=== PATIENT | male | born 1965 ===

== ENCOUNTER 2018-12-07 18:54 | Emergency (ER) | payer OTHER ==
--- NOTE | 2018-12-07 19:12 | Event Note ---
ED Screening Note Date of service: 12/07/18 Time: 19:11 ED Screening Note: 53 y o male presents to Ed ccof rectal pain with fever denies blood in stool This initial assessment/diagnostic orders/clinical plan/treatment(s) is/are subject to change based on patients health status, clinical progression and re- assessment by fellow clinical providers in the ED. Further treatment and workup at subsequent clinical providers discretion. Patient/guardian urged not to elope from the ED as their condition may be serious if not clinically assessed and managed. Initial orders include:
[2018-12-08] MEDS ORDERED: LIDOCAINE VISCOUS 2% PO ONE (02:19)
--- NOTE | 2018-12-08 02:51 | XRay Report ---
ABDOMEN 3 VIEW(S) INDICATION / CLINICAL INFORMATION: abd pain constipation. COMPARISON: None available. FINDINGS: TUBES / LINES: None. BOWEL GAS PATTERN: Large amount of solid stool throughout colon characteristic for constipation. No b owel obstruction. FREE AIR / EXTRALUMINAL GAS: None seen. ADDITIONAL FINDINGS: No significant additional findings. IMPRESSION: 1. Marked constipation. Signer Name: Buzz Garcia MD Signed: 12/08/2018 2:47 AM Workstation Name: [employer]
[2018-12-08] MEDS ORDERED: NACL 0.9% 1000 ML 1,000 ML IV ONE (02:53)
--- NOTE | 2018-12-08 02:54 | Emergency Department Report ---
<ERIC HITCHCOCK - Last Filed: 12/08/18 03:38> ED General Adult HPI - General Chief complaint: Rectal Pain Stated complaint: CHILLS/RECTAL PAIN Time Seen by Provider: 12/07/18 19:10 Source: patient Mode of arrival: Ambulatory Limitations: No Limitations - History of Present Illness Initial comments: 53 y o male presents to Ed cc of rectal pain burning itching with fever tmax 100.4 there is no n/v no denies blood in stool last stool hard firm "rabbit pellets" abd firm, hx of hemorrhoids, GERD , HTN, DMII, pt denies other symptoms is tolerating po intake at this time. Onset/Timin -: week(s), unknown (recurring problem) Severity scale (0 -10): 5 Quality: burning, other (itching ) Consistency: intermittent Improves with: rest Worsens with: other (bowel movement ) Associated Symptoms: denies: chest pain, cough, diaphoresis, fever/chills, headaches, loss of appetite, nausea/vomiting - Related Data Previous Rx's Medication Instructions Recorded Last Taken Type Docusate Sodium [Colace CAP] 100 mg PO BID #60 capsule 12/08/18 Unknown Rx Polyethylene Glycol 3350 [Miralax 17 gm PO BID 7 Days #14 packet 12/08/18 Unknown Rx 3350] Allergies Allergy/AdvReac Type Severity Reaction Status Date / Time No Known Allergies Allergy Verified 12/07/18 18:56 ED Review of Systems Constitutional: denies: chills, fever Eyes: denies: eye pain, eye discharge, vision change ENT: denies: ear pain, throat pain Respiratory: denies: cough, shortness of breath, wheezing Cardiovascular: denies: chest pain, palpitations Endocrine: no symptoms reported Gastrointestinal: abdominal pain, constipation. denies: nausea, vomiting Genitourinary: denies: urgency, dysuria Musculoskeletal: denies: back pain, joint swelling, arthralgia Skin: denies: rash, lesions Neurological: denies: headache, weakness, paresthesias Psychiatric: denies: anxiety, depression Hematological/Lymphatic: denies: easy bleeding, easy bruising ED Past Medical Hx - Past Medical History Previous Medical History?: No - Surgical History Past Surgical History?: No - Social History Smoking Status: Current Every Day Smoker Substance Use Type: None - Medications Home Medications: Home Medications Medication Instructions Recorded Confirmed Last Taken Type Docusate Sodium [Colace CAP] 100 mg PO BID #60 capsule 12/08/18 Unknown Rx Polyethylene Glycol 3350 [Miralax 17 gm PO BID 7 Days #14 packet 12/08/18 Unknown Rx 3350] ED Physical Exam - General Limitations: No Limitations General appearance: alert, in no apparent distress - Head Head exam: Present: atraumatic, normocephalic - Eye Eye exam: Present: normal appearance, PERRL, EOMI Pupils: Present: normal accommodation - ENT ENT exam: Present: normal orophraynx, mucous membranes moist - Neck Neck exam: Present: normal inspection, full ROM. Absent: tenderness - Respiratory Respiratory exam: Present: normal lung sounds bilaterally. Absent: respiratory distress, wheezes, stridor, chest wall tenderness - Cardiovascular Cardiovascular Exam: Present: regular rate, normal rhythm, normal heart sounds. Absent: systolic murmur, diastolic murmur, rubs, gallop - GI/Abdominal GI/Abdominal exam: Present: distended, normal bowel sounds. Absent: tenderness, guarding, rebound, rigid, bruit, hernia - Rectal Rectal exam: Present: normal rectal tone (nonthrombosed ), hemorrhoids. Absent: black stool, bloody stool - exam: Present: normal inspection. Absent: scrotal swelling External exam: Absent: swelling - Extremities Exam Extremities exam: Present: normal inspection, full ROM, normal capillary refill. Absent: tenderness, pedal edema, joint swelling, calf tenderness - Back Exam Back exam: Present: normal inspection, full ROM. Absent: tenderness, CVA tend erness (R), CVA tenderness (L), muscle spasm, rash noted - Neurological Exam Neurological exam: Present: alert, oriented X3, CN II-XII intact, normal gait, motor sensory deficit - Psychiatric Psychiatric exam: Present: normal affect, normal mood - Skin Skin exam: Present: warm, dry, intact, normal color. Absent: rash ED Medical Decision Making - Radiology Data Radiology results: report reviewed, image reviewed Ordering Physician: ERIC HITCHCOCK NP Date of Service: 12/08/18 Procedure(s): XR abdomen 1V ap Accession Number(s): [id number] cc: ERIC HITCHCOCK NP Fluoro Time In Minutes: ABDOMEN 3 VIEW(S) INDICATION / CLINICAL INFORMATION: abd pain constipation. COMPARISON: None available. FINDINGS: TUBES / LINES: None. BOWEL GAS PATTERN: Large amount of solid stool throughout colon characteristic for constipation. No bowel obstruction. FREE AIR / EXTRALUMINAL GAS: None seen. ADDITIONAL FINDINGS: No significant additional findings. IMPRESSION: 1. Marked constipation. Signer Name: Buzz Garcia MD Signed: 12/08/2018 2:47 AM Workstation Name: [id number] Transcribed By: TL Dictated By: Buzz Garcia MD Electronically Authenticated By: Buzz Garcia MD Signed Date/Time: 12/08/18246 DD/ 5 TD/TT: - Medical Decision Making KUB consistent with discuss hydration bulk laxatives hemorrhoids pain is impr jaswinder to 05/16 plan MiraLAX Colace hydrate with him 1 by mouth daily for the next 5 days patient will obtain [id number] Preparation H follow with PCP in 2-3 days return to ED status symptoms worsen or return patient verbalized agreement and understanding of discharge plan DC to home in stable condition at this time ED Disposition Disposition: DC-01 TO HOME OR SELFCARE Is pt being admited?: No Does the pt Need Aspirin: No Condition: Stable Instructions: Constipation (ED), High Fiber Diet (ED) Prescriptions: Docusate Sodium [Colace CAP] 100 mg PO BID #60 capsule Polyethylene Glycol 3350 [Miralax 3350] 17 gm PO BID 7 Days #14 packet Referrals: [facility] [Outside] - 3-5 Days Forms: Work/School Release Form(ED) Time of Disposition: 03:46 <LETA CHEEMA - Last Filed: 12/08/18 05:55> ED Review of Systems ROS: Stated complaint: CHILLS/RECTAL PAIN Other details as noted in HPI ED Course Vital Signs 12/07/18 12/08/18 19:10 04:12 Temperature 100.5 F H 99.0 F Pulse Rate 116 H 89 Respiratory 22 18 Rate Blood Pressure 127/73 Blood Pressure 140/76 [Left] O2 Sat by Pulse 98 99 Oximetry - Reevaluation(s) Reevaluation #1: 12/08/18 05:54 Chart is reviewed, vital signs are reviewed. I was available for consultation, however, this case was not discussed with myself. I have requested that nursing team contact the patient, and have him return to the emergency room for repeat evaluation, given initial tachycardia and low-grade fever, would recommend CT scan of the abdomen and pelvis. Critical care attestation.: If time is entered above; I have spent that time in minutes in the direct care of this critically ill patient, excluding procedure time.
[2018-12-08] MEDS ORDERED: IBUPROFEN PO ONE (02:55)
[2018-12-08 04:12] VITALS: BP 140/76
[2018-12-09] MEDS ORDERED: HumuLIN R ONE (00:50)
[2018-12-09] MEDS ORDERED: LACTATED RINGERS 1,000 ML ONE (19:57)
== END 2018-12-08 04:12 | disposition home or self-care (01) ==
LOC: ED 18:54
DX: K62.89 Other specified diseases of anus and rectum (principal); R50.9 Fever, unspecified; F17.200 Nicotine dependence, unspecified, uncomplicated; Z79.899 Other long term (current) drug therapy
CPT/HCPCS: 74018; 99283; J7030; J1815; J7120

== ENCOUNTER 2018-12-08 16:37 | Inpatient (IN) | payer OTHER ==
--- NOTE | 2018-12-08 18:36 | Emergency Department Report ---
ED General Adult HPI - General Chief complaint: Abdominal Pain Stated complaint: RECHECK FOR HEART RATE Time Seen by Provider: 12/08/18 17:07 Source: patient Mode of arrival: Ambulatory Limitations: No Limitations - History of Present Illness Initial comments: The patient presents to the emergency department with a chief complaint of abdominal and rectal pain. She was seen here yesterday and diagnosed with hemorrhoids and constipation. Patient received a phone call at home today after his chart was reviewed. There was concern that the patient was discharged home with a fever, abdominal pain, and tachycardic. -: week(s) Location: abdomen Radiation: non-radiation Severity scale (0 -10): 3 Quality: stabbing Consistency: constant Improves with: none Worsens with: none Associated Symptoms: denies other symptoms Treatments Prior to Arrival: none - Related Data Previous Rx's Medication Instructions Recorded Last Taken Type Docusate Sodium [Colace CAP] 100 mg PO BID #60 capsule 12/08/18 Unknown Rx Polyethylene Glycol 3350 [Miralax 17 gm PO BID 7 Days #14 packet 12/08/18 Unknown Rx 3350] Allergies Allergy/AdvReac Type Severity Reaction Status Date / Time No Known Allergies Allergy Verified 12/07/18 18:56 ED Review of Systems ROS: Stated complaint: RECHECK FOR HEART RATE Other details as noted in HPI Constitutional: denies: chills, fever Eyes: denies: eye pain, eye discharge, vision change ENT: denies: ear pain, throat pain Respiratory: denies: cough, shortness of breath, wheezing Cardiovascular: denies: chest pain, palpitations Endocrine: no symptoms reported Gastrointestinal: abdominal pain. denies: nausea, diarrhea Genitourinary: denies: urgency, dysuria Musculoskeletal: denies: back pain, joint swelling, arthralgia Skin: denies: rash, lesions Neurological: denies: headache, weakness, paresthesias Psychiatric: denies: anxiety, depression Hematological/Lymphatic: denies: easy bleeding, easy bruising ED Past Medical Hx - Past Medical History Previous Medical History?: No - Surgical History Past Surgical History?: No - Social History Smoking Status: Unknown if ever smoked Substance Use Type: None - Medications Home Medications: Home Medications Medication Instructions Recorded Confirmed Last Taken Type Docusate Sodium [Colace CAP] 100 mg PO BID #60 capsule 12/08/18 Unknown Rx Polyethylene Glycol 3350 [Miralax 17 gm PO BID 7 Days #14 packet 12/08/18 Unknown Rx 3350] ED Physical Exam - General Limitations: No Limitations General appearance: alert, in no apparent distress - Head Head exam: Present: atraumatic, normocephalic - Eye Eye exam: Present: normal appearance, PERRL, EOMI - ENT ENT exam: Present: mucous membranes moist - Neck Neck exam: Present: normal inspection - Respiratory Respiratory exam: Present: normal lung sounds bilaterally. Absent: respiratory distress - Cardiovascular Cardiovascular Exam: Present: normal rhythm, tachycardia. Absent: systolic murmur, diastolic murmur, rubs, gallop - GI/Abdominal GI/Abdominal exam: Present: soft, tenderness (diffusely ttp), normal bowel sounds. Absent: distended - Rectal Rectal exam: Present: deferred - Extremities Exam Extremities exam: Present: normal inspection - Back Exam Back exam: Present: normal inspection - Neurological Exam Neurological exam: Present: alert, oriented X3 - Psychiatric Psychiatric exam: Present: normal affect, normal mood - Skin Skin exam: Present: warm, dry, intact, normal color. Absent: rash ED Course Vital Signs 12/08/18 16:59 Temperature 100.0 F H Pulse Rate 107 H Respiratory 18 Rate Blood Pressure 141/81 O2 Sat by Pulse 100 Oximetry ED Medical Decision Making - Lab Data Result diagrams: 12/08/18 18:29 12/08/18 18:29 Lab Results 12/08/18 12/08/18 12/08/18 Range/Units 18:29 18:29 18:56 WBC 12.2 H (4.5-11.0) K/mm3 RBC 4.66 (3.65-5.03) M/mm3 Hgb 13.6 (11.8-15.2) gm/dl Hct 40.4 (35.5-45.6) % MCV 87 (84-94) fl MCH 29 (28-32) pg MCHC 34 (32-34) % RDW 13.6 (13.2-15.2) % Plt Count 311 (140-440) K/mm3 Lymph % (Auto) 12.0 L (13.4-35.0) % Teller % (Auto) 6.3 (0.0-7.3) % Eos % (Auto) 2.3 (0.0-4.3) % Baso % (Auto) 1.2 (0.0-1.8) % Lymph # 1.5 (1.2-5.4) K/mm3 Teller # 0.8 (0.0-0.8) K/mm3 Eos # 0.3 (0.0-0.4) K/mm3 Baso # 0.1 (0.0-0.1) K/mm3 Seg Neutrophils % 78.2 H (40.0-70.0) % Seg Neutrophils # 9.5 H (1.8-7.7) K/mm3 Sodium 130 L (137-145) mmol/L Potassium 4.8 (3.6-5.0) mmol/L Chloride 92.4 L (98-107) mmol/L Carbon Dioxide 25 (22-30) mmol/L Anion Gap 17 mmol/L BUN 11 (9-20) mg/dL Creatinine 0.6 L (0.8-1.5) mg/dL Estimated GFR > 60 ml/min BUN/Creatinine Ratio 18 % Glucose 411 H (75-100) mg/dL Lactic Acid 1.20 (0.7-2.0) mmol/L Calcium 9.6 (8.4-10.2) mg/dL Total Bilirubin 0.30 (0.1-1.2) mg/dL AST 13 (5-40) units/L ALT 13 (7-56) units/L Alkaline Phosphatase 113 (35-129) units/L Total Protein 7.8 (6.3-8.2) g/dL Albumin 3.5 L (3.9-5) g/dL Albumin/Globulin Ratio 0.8 % Lipase 20 (13-60) units/L Urine Color (Yellow) Urine Turbidity (Clear) Urine pH (5.0-7.0) Ur Specific [place] (1.003-1.030) Urine Protein (Negative) mg/dL Urine Glucose (UA) (Negative) mg/dL Urine Ketones (Negative) mg/dL Urine Blood (Negative) Urine Nitrite (Negative) Urine Bilirubin (Negative) Urine Urobilinogen (<2.0) mg/dL Ur Leukocyte Esterase (Negative) Urine WBC (Auto) (0.0-6.0) /HPF Urine RBC (Auto) (0.0-6.0) /HPF U Epithel Cells (Auto) (0-13.0) /HPF Urine Bacteria (Auto) (Negative) /HPF Urine Mucus /HPF Urine Yeast (Budding) /HPF 12/08/18 Range/Units 19:53 WBC (4.5-11.0) K/mm3 RBC (3.65-5.03) M/mm3 Hgb (11.8-15.2) gm/dl Hct (35.5-45.6) % MCV (84-94) fl MCH (28-32) pg MCHC (32-34) % RDW (13.2-15.2) % Plt Count (140-440) K/mm3 Lymph % (Auto) (13.4-35.0) % Teller % (Auto) (0.0-7.3) % Eos % (Auto) (0.0-4.3) % Baso % (Auto) (0.0-1.8) % Lymph # (1.2-5.4) K/mm3 Teller # (0.0-0.8) K/mm3 Eos # (0.0-0.4) K/mm3 Baso # (0.0-0.1) K/mm3 Seg Neutrophils % (40.0-70.0) % Seg Neutrophils # (1.8-7.7) K/mm3 Sodium (137-145) mmol/L Potassium (3.6-5.0) mmol/L Chloride (98-107) mmol/L Carbon Dioxide (22-30) mmol/L Anion Gap mmol/L BUN (9-20) mg/dL Creatinine (0.8-1.5) mg/dL Estimated GFR ml/min BUN/Creatinine Ratio % Glucose (75-100) mg/dL Lactic Acid (0.7-2.0) mmol/L Calcium (8.4-10.2) mg/dL Total Bilirubin (0.1-1.2) mg/dL AST (5-40) units/L ALT (7-56) units/L Alkaline Phosphatase (35-129) units/L Total Protein (6.3-8.2) g/dL Albumin (3.9-5) g/dL Albumin/Globulin Ratio % Lipase (13-60) units/L Urine Color Yellow (Yellow) Urine Turbidity Cloudy (Clear) Urine pH 7.0 (5.0-7.0) Ur Specific [place] 1.028 (1.003-1.030) Urine Protein <15 mg/dl (Negative) mg/dL Urine Glucose (UA) >=500 (Negative) mg/dL Urine Ketones Neg (Negative) mg/dL Urine Blood Sm (Negative) Urine Nitrite Pos (Negative) Urine Bilirubin Neg (Negative) Urine Urobilinogen 4.0 (<2.0) mg/dL Ur Leukocyte Esterase Lg (Negative) Urine WBC (Auto) > 182.0 H (0.0-6.0) /HPF Urine RBC (Auto) 9.0 (0.0-6.0) /HPF U Epithel Cells (Auto) 1.0 (0-13.0) /HPF Urine Bacteria (Auto) 1+ (Negative) /HPF Urine Mucus Few /HPF Urine Yeast (Budding) 1+ /HPF - Radiology Data Radiology results: report reviewed - Medical Decision Making Spoke with Dr. Soliz and will see patient on consult Discussed results with patient Critical Care Time: Yes Critical care time in (mins) excluding proc time.: 35 Critical care attestation.: If time is entered above; I have spent that time in minutes in the direct care of this critically ill patient, excluding procedure time. ED Disposition Clinical Impression: Prostate abscess, Sepsis Disposition: DC-09 OP ADMIT IP TO THIS HOSP Is pt being admited?: Yes Does the pt Need Aspirin: No Condition: Fair Referrals: PRIMARY CARE, [Primary Care Provider] - 3-5 Days
[2018-12-08] MEDS ORDERED: NACL 0.9% 1000 ML 1,000 ML IV ONE (18:37)
[2018-12-08] MEDS ORDERED: MAXIPIME/NS 1 GM/100 ML 1 GM/100 ML BAG IV ONE (18:38)
[2018-12-08 19:00] LABS: Basophils # (Auto) 0.1 K/mm3 (0.0-0.1); Basophils % (Auto) 1.2 % (0.0-1.8); Eosinophils # (Auto) 0.3 K/mm3 (0.0-0.4); Eosinophils % (Auto) 2.3 % (0.0-4.3); Hematocrit 40.4 % (35.5-45.6); Hemoglobin 13.6 gm/dl (11.8-15.2); Lymphocytes # (Auto) 1.5 K/mm3 (1.2-5.4); Mean Corpuscular HGB Conc 34 % (32-34); Mean Corpuscular Volume 87 fl (84-94); Monocytes # (Auto) 0.8 K/mm3 (0.0-0.8); Monocytes % (Auto) 6.3 % (0.0-7.3); Platelet Count 311 K/mm3 (140-440); Red Blood Count 4.66 M/mm3 (3.65-5.03); Red Cell Distribution Width 13.6 % (13.2-15.2)
[2018-12-08 19:16] LABS: Alanine Aminotransferase 13 units/L (7-56); Albumin 3.5 g/dL (3.9-5); BUN/Creatinine Ratio 18; Blood Urea Nitrogen 11 mg/dL (9-20); Calcium 9.6 mg/dL (8.4-10.2); Hemolysis Index 8
[2018-12-08 20:07] LABS: Bacteria,Urine 1+ /HPF (Negative); Bilirubin,Urine NEG (Negative); Blood,Urine SM (Negative); Color,Urine Yellow (Yellow); Mucus,Urine FEW /HPF; Protein,Urine <15 mg/dL mg/dL (Negative)
[2018-12-08 20:08] LABS: WBC,Urine > 182.0 /HPF (0.0-6.0)
--- NOTE | 2018-12-08 20:59 | Cat Scan Report ---
CT ABDOMEN AND PELVIS WITH IV CONTRAST INDICATION: Lower abdominal and pelvic pain with fever. COMPARISON: None available. TECHNIQUE: Axial CT images were obtained through the abdomen and pelvis after 100 mL IV contrast. All CT scans a t this location are performed using CT dose reduction for ALARA by means of automated exposure contro l. FINDINGS -- ABDOMEN: Lung Bases: No acute abnormality. Liver: Normal. Gallbladder: Normal. Bile Ducts: Normal. Pancreas: Normal. Spleen: Normal. Adrenals: Normal. Right Kidney and Proximal Ureter: Normal. Left Kidney and Proximal Ureter: Normal. Stomach and Bowel: Normal. Lymph Nodes: No significant adenopathy. Aorta: No significant abnormality. IVC: Normal. Additional Findings: None. FINDINGS -- PELVIS: Urinary Bladder and Distal Ureters: Normal. Reproductive Organs: There is a 7.1 x 5.7 cm peripherally enhancing fluid collection that appears to arise from the junction of the left seminal vesicle in the prostate.. Appendix: Not well identified.. Bowel: No acute abnormality. Free Fluid: None. Lymph Nodes: No significant adenopathy. Additional Findings: None. Skeletal System: No acute abnormality. IMPRESSION: Large 7 x 6 cm fluid collection with peripheral enhancement along the left side of the prostate near the seminal vesicle, worrisome for prostate abscess. The fluid collection does not appear to indicate with the anus or rectum. No gluteal extension is identified. Signer Name: Sergio Forrester MD Signed: 12/08/2018 8:55 PM Workstation Name: [id number]
[2018-12-08] MEDS ORDERED: VANCOMYCIN/NS 1 GM/250 ML 1 GM/250 ML BAG IV ONE (22:15)
[2018-12-08] MEDS ORDERED: D50W (25GM) Syringe IV PRN (22:16)
[2018-12-08] MEDS ORDERED: SODIUM CHLORIDE FLUSH SYRINGE 10 ML IV PRN (22:16)
[2018-12-08] MEDS ORDERED: ZOFRAN IV PRN (22:16)
[2018-12-08] MEDS ORDERED: TYLENOL PO PRN (22:16)
--- NOTE | 2018-12-08 22:19 | History and Physical Report ---
History of Present Illness Date of examination: 12/08/18 History of present illness: 53-year-old man with a history of hypertension, diabetes, GERD was seen in the emergency yesterday for rectal pain, diagnosed with constipation. He was wynn d back today for further evaluation. He stated that over the last 3 weeks he has been having fever chills and pain in his rectum radiating to the perineum, intermittent every 30 minutes, intensity 5/10 genitourinary thigh exacerbating or relieving factors eview Of Systems: Constitutional: no weight loss, fever, chills Ears, eyes, nose, mouth and throat: no nasal congestion, no nasal discharge, no sinus pressure, blurry vision, diplopia Neck: No neck pain or rigidity. Cardiovascular: No palpitations, chest pain Respiratory: No shortness of breath, cough Gastrointestinal: No hematochezia, abdominal pain Genitourinary : no dysuria, frequency , hematuria Musculoskeletal: no muscle ache , joint pain Integumentary: no rash, no pruritis Neurological: no parathesias, focal weakness Endocrine: no cold or heat intolerance, no polyuria or polydipsia Hematologic/Lymphatic: no easy bruising, no easy bleeding, no gland swelling Allergic/Immunologic: no urticaria, no angioedema. PAST MEDICAL HISTORY:hypertension, diabetes, GERD PAST SURGICAL HISTORY:none FAMILY HISTORY:hypertension, diabetes SOCIAL HISTORY:+ tobacco, no drugs, alcohol Medications and Allergies Allergies Allergy/AdvReac Type Severity Reaction Status Date / Time No Known Allergies Allergy Verified 12/07/18 18:56 Home Medications Medication Instructions Recorded Confirmed Last Taken Type Docusate Sodium [Colace CAP] 100 mg PO BID #60 capsule 12/08/18 12/09/18 Unknown Rx Polyethylene Glycol 3350 [Miralax 17 gm PO BID 7 Days #14 packet 12/08/18 12/09/18 Unknown Rx 3350] Active Meds: Active Medications Piperacillin Sod/Tazobactam Sod (Zosyn/Ns 4.5gm/100ml) 4.5 gm in 100 mls @ 200 mls/hr IV Q8HR ANAT; Protocol Vancomycin HCl (Vancomycin/Ns 1 Gm/250 Ml) 1 gm in 250 mls @ 167.007 mls/hr IV ONCE ONE; Protocol Stop: 12/08/18 23:44 Exam - Physical Exam Narrative exam: General Apperance: The patient sitting in bed no acute distress HEENT: Normocephalic, atraumatic. Pupils equally round and reactive to light, extraocular movement intact, and no sclericterus or JVD or thyromegaly or nodule. Neck supple, no carotid bruit, mucous membranes moist, no exudate or erythema Heart: S1-S2, regular is rhythm Lungs: Clear to auscultation bilaterally, breathing comfortable Abdomen: Positive bowel sounds, soft, nontender, nondistended, no organomegaly Extremities: No edema cyanosis clubbing Skin: no rash, nodule, warm and dry, perineal Area, no erythema, tender Neuro:CN 2 -12 intact, motor/sensory intact, speech is fluent - Constitutional Vitals: Temp Pulse Resp BP Pulse Ox 100.0 F H 107 H 18 141/81 100 12/08/18 16:59 12/08/18 16:59 12/08/18 16:59 12/08/18 16:59 12/08/18 16:59 Results - Labs CBC & Chem 7: 12/08/18 18:29 12/08/18 18:29 Labs: Abnormal lab results 12/08/18 12/08/18 12/08/18 Range/Units 18:29 18:29 19:53 WBC 12.2 H (4.5-11.0) K/mm3 Lymph % (Auto) 12.0 L (13.4-35.0) % Seg Neutrophils % 78.2 H (40.0-70.0) % Seg Neutrophils # 9.5 H (1.8-7.7) K/mm3 Sodium 130 L (137-145) mmol/L Chloride 92.4 L (98-107) mmol/L Creatinine 0.6 L (0.8-1.5) mg/dL Glucose 411 H (75-100) mg/dL Albumin 3.5 L (3.9-5) g/dL Urine WBC (Auto) > 182.0 H (0.0-6.0) /HPF - Imaging and Cardiology EKG: image reviewed CT scan - abdomen: report reviewed CT scan - pelvis: report reviewed Assessment and Plan Assessment Prostate abscess UTI hypertension diabetes GERD Plan Place him bowel rest, urology consulted to see the patient Start vancomycin, Zosyn, follow cultures Check fingersticks initiate insulin sliding scale, IV fluid IV morphine, DVT prophylaxis
[2018-12-08] MEDS ORDERED: VANCOMYCIN 1,250 MG in NACL 0.9% 250ML 250 ML IV ONE (22:30)
[2018-12-08] MEDS: ZOSYN/NS 4.5GM/100ML 4.5 GM/100 ML VIAL IV SCH (22:31)
[2018-12-09] MEDS ORDERED: MORPHINE ONE (00:12)
[2018-12-09] MEDS: MORPHINE IV PRN (00:45)
[2018-12-09] MEDS ORDERED: HumuLIN R SUB-Q ONE (00:45)
[2018-12-09] MEDS: NACL 0.45% 1000 ML 1,000 ML IV SCH ×2 (03:06→14:08)
[2018-12-09 05:15] LABS: Basophils # (Auto) 0.1 K/mm3 (0.0-0.1); Basophils % (Auto) 0.9 % (0.0-1.8); Eosinophils # (Auto) 0.3 K/mm3 (0.0-0.4); Eosinophils % (Auto) 2.6 % (0.0-4.3); Hematocrit 36.8 % (35.5-45.6); Hemoglobin 12.3 gm/dl (11.8-15.2); Lymphocytes # (Auto) 1.4 K/mm3 (1.2-5.4); Mean Corpuscular HGB Conc 34 % (32-34); Mean Corpuscular Volume 87 fl (84-94); Monocytes # (Auto) 0.9 K/mm3 (0.0-0.8); Monocytes % (Auto) 8.1 % (0.0-7.3); Platelet Count 288 K/mm3 (140-440); Red Blood Count 4.24 M/mm3 (3.65-5.03); Red Cell Distribution Width 13.7 % (13.2-15.2)
[2018-12-09 05:42] LABS: BUN/Creatinine Ratio 15; Blood Urea Nitrogen 9 mg/dL (9-20); Hemolysis Index 0
[2018-12-09] MEDS: ZOSYN/NS 4.5GM/100ML 4.5 GM/100 ML VIAL IV SCH ×3 (06:13→23:34)
[2018-12-09] MEDS ORDERED: D50W (25GM) Syringe IV PRN (07:59)
--- NOTE | 2018-12-09 08:01 | Progress Note ---
Assessment and Plan Assessment and plan: 53-year-old man with a history of hypertension, diabetes, GERD was seen in the emergency yesterday for rectal pain, diagnosed with constipation. He was called back today for further evaluation due to concern of fever, tachycardia and abdominal pain. He stated that over the last 3 weeks he has been having fever chills and pain in his rectum radiating to the perineum, intermittent every 30 minutes, intensity 5/10 genitourinary thigh exacerbating or relieving factors Sepsis-POA Prostate abscess UTI hypertension Diabetes Mellitus GERD Plan Continue supportive care Await Urology input Consult ID due to sepsis Continue Abx for now till evaluated by ID Follow cultures Check urine culture Control Bg IV morphine, DVT prophylaxis Plan discussed with the patient in detail History Interval history: Patient seen and examined, resting, still reports 3/10 abdominal pain Hospitalist Physical - Physical exam Narrative exam: General Apperance: uncomfortable appearing HEENT: Normocephalic, atraumatic. Pupils equally round and reactive to light, extraocular movement intact, and no sclericterus or JVD or thyromegaly or nodule. Neck supple, no carotid bruit, mucous membranes moist, no exudate or erythema Heart: S1-S2, regular is rhythm Lungs: Clear to auscultation bilaterally, breathing comfortable Abdomen: Positive bowel sounds, soft, nontender, nondistended, no organomegaly Extremities: No edema cyanosis clubbing Skin: no rash, nodule, warm and dry, perineal Area, no erythema, tender Neuro:CN 2 -12 intact, motor/sensory intact, speech is fluent - Constitutional Vitals: Temp Pulse Resp BP Pulse Ox 98 F 76 18 130/83 100 12/09/18 00:07 12/09/18 00:07 12/09/18 02:03 12/09/18 00:07 12/09/18 00:07 Results - Labs CBC & Chem 7: 12/09/18 04:41 12/09/18 04:41 Labs: Laboratory Last Values WBC 11.6 K/mm3 (4.5-11.0) H 12/09/18 04:41 RBC 4.24 M/mm3 (3.65-5.03) 12/09/18 04:41 Hgb 12.3 gm/dl (11.8-15.2) 12/09/18 04:41 Hct 36.8 % (35.5-45.6) 12/09/18 04:41 MCV 87 fl (84-94) 12/09/18 04:41 MCH 29 pg (28-32) 12/09/18 04:41 MCHC 34 % (32-34) 12/09/18 04:41 RDW 13.7 % (13.2-15.2) 12/09/18 04:41 Plt Count 288 K/mm3 (140-440) 12/09/18 04:41 Lymph % (Auto) 12.0 % (13.4-35.0) L 12/09/18 04:41 [place] % (Auto) 8.1 % (0.0-7.3) H 12/09/18 04:41 Eos % (Auto) 2.6 % (0.0-4.3) 12/09/18 04:41 Baso % (Auto) 0.9 % (0.0-1.8) 12/09/18 04:41 Lymph # 1.4 K/mm3 (1.2-5.4) 12/09/18 04:41 [place] # 0.9 K/mm3 (0.0-0.8) H 12/09/18 04:41 Eos # 0.3 K/mm3 (0.0-0.4) 12/09/18 04:41 Baso # 0.1 K/mm3 (0.0-0.1) 12/09/18 04:41 Seg Neutrophils % 76.4 % (40.0-70.0) H 12/09/18 04:41 Seg Neutrophils # 8.9 K/mm3 (1.8-7.7) H 12/09/18 04:41 POC ABG pH 7.416 (7.35-7.45) 12/09/18 00:36 POC ABG pCO2 37.6 (35-45) 12/09/18 00:36 POC ABG pO2 71 (80-105) L 12/09/18 00:36 POC ABG HCO3 24.1 (22-26 mml/L) 12/09/18 00:36 POC ABG Total CO2 25 (23-27mmol/L) 12/09/18 00:36 POC ABG O2 Sat 94 12/09/18 00:36 POC ABG Base Excess 0 ((-2) - (+3)mmol/L) 12/09/18 00:36 21 % 12/09/18 00:36 Sodium 135 mmol/L (137-145) L 12/09/18 04:41 Potassium 4.3 mmol/L (3.6-5.0) 12/09/18 04:41 Chloride 97.0 mmol/L (98-107) L 12/09/18 04:41 Carbon Dioxide 24 mmol/L (22-30) 12/09/18 04:41 18 mmol/L 12/09/18 04:41 BUN 9 mg/dL (9-20) 12/09/18 04:41 0.6 mg/dL (0.8-1.5) L 12/09/18 04:41 Estimated GFR > 60 ml/min 12/09/18 04:41 15 % 12/09/18 04:41 Glucose 303 mg/dL (75-100) H 12/09/18 04:41 POC Glucose 152 (70-105) H 12/09/18 01:00 Lactic Acid 1.20 mmol/L (0.7-2.0) 12/08/18 18:56 Calcium 9.0 mg/dL (8.4-10.2) 12/09/18 04:41 0.30 mg/dL (0.1-1.2) 12/08/18 18:29 AST 13 units/L (5-40) 12/08/18 18:29 ALT 13 units/L (7-56) 12/08/18 18:29 113 units/L (35-129) 12/08/18 18:29 7.8 g/dL (6.3-8.2) 12/08/18 18:29 3.5 g/dL (3.9-5) L 12/08/18 18:29 0.8 % 12/08/18 18:29 20 units/L (13-60) 12/08/18 18:29 Yellow (Yellow) 12/08/18 19:53 Cloudy (Clear) 12/08/18 19:53 7.0 (5.0-7.0) 12/08/18 19:53 Ur Specific Shorter 1.028 (1.003-1.030) 12/08/18 19:53 <15 mg/dl mg/dL (Negative) 12/08/18 19:53 >=500 mg/dL (Negative) 12/08/18 19:53 Neg mg/dL (Negative) 12/08/18 19:53 Sm (Negative) 12/08/18 19:53 Pos (Negative) 12/08/18 19:53 Neg (Negative) 12/08/18 19:53 4.0 mg/dL (<2.0) 12/08/18 19:53 Ur Leukocyte Esterase Lg (Negative) 12/08/18 19:53 > 182.0 /HPF (0.0-6.0) H 12/08/18 19:53 9.0 /HPF (0.0-6.0) 12/08/18 19:53 U Epithel Cells (Auto) 1.0 /HPF (0-13.0) 12/08/18 19:53 1+ /HPF (Negative) 12/08/18 19:53 Few /HPF 12/08/18 19:53 1+ /HPF 12/08/18 19:53 Active Medications - Current Medications Current Medications: Generic Name Dose Route Start Last Admin Trade Name Freq PRN Reason Stop Dose Admin Acetaminophen 650 mg 12/08/18 22:16 12/09/18 02:03 Tylenol PO 650 mg Q4H PRN Administration Pain MILD(1-3)/Fever >100.5/CHATMAN Dextrose 50 ml 12/08/18 22:16 D50w (25gm) Syringe IV PRN PRN Hypoglycemia Dextrose 50 ml 12/09/18 07:59 D50w (25gm) Syringe IV PRN PRN Hypoglycemia Enoxaparin Sodium 40 mg 12/09/18 10:00 Lovenox SUB-Q QDAY@1000 ANAT Piperacillin Sod/Tazobactam Sod 4.5 gm in 100 mls @ 200 mls/hr 12/08/18 23:00 12/09/18 06:13 Zosyn/Ns 4.5gm/100ml IV 200 mls/hr Q8HR ANAT Administration Protocol Sodium Chloride 1,000 mls @ 100 mls/hr 12/08/18 23:00 12/09/18 03:06 Nacl 0.45% 1000 Ml IV 100 mls/hr DIRECT ANAT Administration Insulin Human Lispro 0 unit 09/05/19 11:30 Humalog SUB-Q ACHS [facility] Protocol Insulin Human Regular 12 units 12/09/18 11:30 Humulin R SUB-Q AC [facility] Morphine Sulfate 2 mg 12/08/18 22:16 12/09/18 00:45 Morphine IV 2 mg Q4H PRN Administration Pain, Moderate (4-6) Ondansetron HCl 4 mg 12/08/18 22:16 Zofran IV Q8H PRN Nausea And Vomiting Sodium Chloride 10 ml 12/09/18 10:00 Sodium Chloride Flush Syringe 10 Ml IV BID [facility] Sodium Chloride 10 ml 12/08/18 22:16 Sodium Chloride Flush Syringe 10 Ml IV PRN PRN LINE FLUSH
[2018-12-09] MEDS ORDERED: SORBITOL-MANNITOL IRRIG IR ONE (08:20)
[2018-12-09] MEDS ORDERED: WATER FOR IRRIG STERILE IR ONE (08:20)
--- NOTE | 2018-12-09 08:51 | Event Note ---
Date: 12/09/18 consult from ER --Dr. Smith pt with prostate abscess on CT blood sugar 400 spoke with pt today will try to put on OR schedule for cysto & drainage discussed with his nurse NPO
[2018-12-09] MEDS ORDERED: LOVENOX SUB-Q SCH (10:00)
[2018-12-09] MEDS: LOVENOX SUB-Q SCH (10:00)
--- NOTE | 2018-12-09 11:02 | Consultation ---
History of Present Illness - Reason for Consult Consult date: 12/09/18 - History of Present Illness 53 yo M PMHx HTN, DM2, GERD admitted with rectal pain. He notes these symptoms began approximately 3 weeks prior to admission, and that the pain in his rectum radiates to the perineum. He also complains of associated subjective fevers and chills. He presented to the ER the day before admission and was diagnosed with constipation and hemorrhoids, which he had complained of. After his chart being reviewed again he was called back and instructed to return to the hospital for further evaluation due to fever and tachycardia. Afebrile during this admission, but fever in the ER during his first presentation to 100.5. Currently receiving Zosyn. Urinalysis with pyuria. . BCx from 12/08 are pending. Luekocytosis to 12. Urology hoping to take the the OR for drainage shortly. Imaging personally reviewed: CTAP with 7x6xm left prostatic abscess Review of Systems: Bold if positive, otherwise negative General: fevers, chills, rigors HEENT: visual disturbance, diplopia, eye pain Respiratory: cough, sputum, hemoptysis, shortness of breath Cardiovascular: chest pain, syncope Gastrointestinal: nausea, vomiting, diarrhea, abdominal pain Genitourinary: dysuria, hematuria, flank pain Musculoskeletal: neck pain, back pain, joint pain, edema Neurologic: headaches, seizures Hematologic: easy bruising or bleeding Endocrine: night sweats, acute weight loss Skin: rash, jaundice, redness Psychiatric: suicidal, homicidal ideation Past History Past Medical History: diabetes, GERD, hypertension Past Surgical History: No surgical history Social history: denies: smoking, alcohol abuse Family history: diabetes Medications and Allergies Allergies Allergy/AdvReac Type Severity Reaction Status Date / Time No Known Allergies Allergy Verified 12/07/18 18:56 Home Medications Medication Instructions Recorded Confirmed Last Taken Type Docusate Sodium [Colace CAP] 100 mg PO BID #60 capsule 12/08/18 12/09/18 Unknown Rx Polyethylene Glycol 3350 [Miralax 17 gm PO BID 7 Days #14 packet 12/08/18 12/09/18 Unknown Rx 3350] Active Meds: Active Medications Acetaminophen (Tylenol) 650 mg PO Q4H PRN PRN Reason: Pain MILD(1-3)/Fever >100.5/CHATMAN Last Admin: 12/09/18 02:03 Dose: 650 mg Documented by: Dextrose (D50w (25gm) Syringe) 50 ml IV PRN PRN PRN Reason: Hypoglycemia Enoxaparin Sodium (Lovenox) 40 mg SUB-Q QDAY@1000 ANAT Piperacillin Sod/Tazobactam Sod (Zosyn/Ns 4.5gm/100ml) 4.5 gm in 100 mls @ 200 mls/hr IV Q8HR ANAT; Protocol Last Admin: 12/09/18 06:13 Dose: 200 mls/hr Documented by: Sodium Chloride (Nacl 0.45% 1000 Ml) 1,000 mls @ 100 mls/hr IV DIRECT ANAT Last Admin: 12/09/18 03:06 Dose: 100 mls/hr Documented by: Insulin Human Lispro (Humalog) 0 unit SUB-Q ACHS ANAT; Protocol Insulin Human Regular (Humulin R) 12 units SUB-Q AC ANAT Morphine Sulfate (Morphine) 2 mg IV Q4H PRN PRN Reason: Pain, Moderate (4-6) Last Admin: 12/09/18 00:45 Dose: 2 mg Documented by: Ondansetron HCl (Zofran) 4 mg IV Q8H PRN PRN Reason: Nausea And Vomiting Sodium Chloride (Sodium Chloride Flush Syringe 10 Ml) 10 ml IV BID ANAT Sodium Chloride (Sodium Chloride Flush Syringe 10 Ml) 10 ml IV PRN PRN PRN Reason: LINE FLUSH Physical Examination - Physical Exam Narrative exam: Physical Exam: Constitutional: Alert, cooperative. No acute distress Head, Ears, Nose: Normocephalic, atraumatic. External ears, nose normal Eyes: Conjunctivae/corneas clear. No icterus. No ptosis. Neck: Supple, no meningeal signs Oral: dentition fair, no thrush Cardiovascular: S1, S2 normal. Respiratory: Good air entry, clear to auscultation bilaterally GI: Soft, non-tender; bowel sounds normal. No peritoneal signs. Musculoskeletal: No pedal edema, no cyanosis. Skin: No rash or abscess Hem/Lymphatic: No palpable cervical or supraclavicular nodes. No lymphangitis Psych: Mood ok. Affect normal Neurological: Awake, alert, oriented. No gross abnormality - Constitutional Vitals: Vital Signs Temp Pulse Resp BP Pulse Ox 98.7 F 90 20 130/83 99 12/09/18 09:10 12/09/18 09:10 12/09/18 09:10 12/09/18 09:10 12/09/18 09:10 Temperature -Last 24 Hours Temperature 98.7 F Temperature 98 F Temperature 100.0 F Results - Labs CBC & Chem 7: 12/09/18 04:41 12/09/18 04:41 Labs: Abnormal lab results 12/08/18 12/08/18 12/08/18 Range/Units 18:29 18:29 19:53 WBC 12.2 H (4.5-11.0) K/mm3 Lymph % (Auto) 12.0 L (13.4-35.0) % [place] % (Auto) (0.0-7.3) % [place] # (0.0-0.8) K/mm3 Seg Neutrophils % 78.2 H (40.0-70.0) % Seg Neutrophils # 9.5 H (1.8-7.7) K/mm3 POC ABG pO2 (80-105) Sodium 130 L (137-145) mmol/L Chloride 92.4 L (98-107) mmol/L Creatinine 0.6 L (0.8-1.5) mg/dL Glucose 411 H (75-100) mg/dL POC Glucose (70-105) Albumin 3.5 L (3.9-5) g/dL Urine WBC (Auto) > 182.0 H (0.0-6.0) /HPF 12/09/18 12/09/18 12/09/18 Range/Units 00:36 01:00 04:41 WBC 11.6 H (4.5-11.0) K/mm3 Lymph % (Auto) 12.0 L (13.4-35.0) % [place] % (Auto) 8.1 H (0.0-7.3) % [place] # 0.9 H (0.0-0.8) K/mm3 Seg Neutrophils % 76.4 H (40.0-70.0) % Seg Neutrophils # 8.9 H (1.8-7.7) K/mm3 POC ABG pO2 71 L (80-105) Sodium (137-145) mmol/L Chloride (98-107) mmol/L Creatinine (0.8-1.5) mg/dL Glucose (75-100) mg/dL POC Glucose 152 H (70-105) Albumin (3.9-5) g/dL Urine WBC (Auto) (0.0-6.0) /HPF 12/09/18 12/09/18 Range/Units 04:41 07:57 WBC (4.5-11.0) K/mm3 Lymph % (Auto) (13.4-35.0) % [place] % (Auto) (0.0-7.3) % [place] # (0.0-0.8) K/mm3 Seg Neutrophils % (40.0-70.0) % Seg Neutrophils # (1.8-7.7) K/mm3 POC ABG pO2 (80-105) Sodium 135 L (137-145) mmol/L Chloride 97.0 L (98-107) mmol/L Creatinine 0.6 L (0.8-1.5) mg/dL Glucose 303 H (75-100) mg/dL POC Glucose 237 H (70-105) Albumin (3.9-5) g/dL Urine WBC (Auto) (0.0-6.0) /HPF - Imaging and Cardiology CT scan - abdomen: image reviewed Assessment and Plan Cultures: 12/08 BCX: NGTD 12/09 UCx: pending A/P:63 yo M PMHx HTN, DM2, GERD admitted with prostatic abscess 1. Acute sepsis - present on admission with fever, tachycardia, leukocytosis. Secondary to prostatic abscess 2. Prostatic abscess - would follow up urine cultures and adjust therapy. Ok to continue Zosyn for now pending culture and sensitivities. Agree with urology plan for drainage. Please send aerobic and anaerobic cultures from the drainage. Likely to change to a fluoroquinolone for prolonged ABx after drainage due to excellent prostatic penetration. 3. HTN 4. DM2 Recs: - continue pip-kit 4.5g q8h pending drainage - follow up urine cultures and blood cultures - obtain intra-operative aerobic and anaerobic cultures. Thank you for the consult, we will continue to follow. Blair Daniels MD [facility] M: [phone] O: [phone] F: [phone]
[2018-12-09] MEDS: SODIUM CHLORIDE FLUSH SYRINGE 10 ML IV SCH ×2 (11:07→23:35)
[2018-12-09] MEDS: HumaLOG SUB-Q SCH ×3 (11:30→23:34)
[2018-12-09] MEDS: HumuLIN R SUB-Q SCH ×2 (11:30→16:30)
--- NOTE | 2018-12-09 16:05 | Anesthesia Consultation ---
Anesthesia Consult and Med Hx Date of service: 12/09/18 - Airway Anesthetic Teeth Evaluation: Dentures ROM Head & Neck: Adequate Mental/Hyoid Distance: Adequate Mallampati Class: Class II Intubation Access Assessment: Good - Pulmonary Hx Smoking: Yes (1/2 pack per day) Hx Asthma: No Hx Respiratory Symptoms: No SOB: No COPD: No Home Oxygen Therapy: No Hx Pneumonia: No Hx Sleep Apnea: No - Cardiovascular System Hx Hypertension: Yes Hx Coronary Artery Disease: No Hx Heart Attack/AMI: No Hx Angina: No Hx Percutaneous Transluminal Coronary Angioplasty (PTCA): No Hx Cardia Arrhythmia: No Hx Pacemaker: No Hx Internal Defibrillator: No Hx Valvular Heart Disease: No Hx Heart Murmur: No Hx Peripheral Vascular Disease: No - Central Nervous System Hx Neuromuscular Disorder: No Hx Seizures: No CVA: No Hx Back Pain: Yes (started 3 weeks ago) Hx Psychiatric Problems: No - Gastrointestinal Hx Ulcer: No Hx Gastroesophageal Reflux Disease: Yes - Endocrine Hx Renal Disease: No Hx End Stage Renal Disease: No Hx Cirrhosis: No Hx Liver Disease: No Hx Insulin Dependent Diabetes: No Hx Non-Insulin Dependent Diabetes: Yes (metformin @ Home) Hx Thyroid Disease: No Hx Hypothyroidism: No Hx Hyperthyroidism: No - Hematic Hx Anemia: No Hx Sickle Cell Disease: No - Other Systems Hx Alcohol Use: No Hx Substance Use: No Hx Cancer: No Hx Obesity: No
--- NOTE | 2018-12-09 16:12 | Anesthesia Day of Surgery ---
Anesthesia Day of Surgery - Day of Surgery Patient Examined: Yes Patient H&P Reviewed: Yes Patient is NPO: Yes Beta Blockers: No
--- NOTE | 2018-12-09 17:34 | Consultation ---
History of Present Illness - Reason for Consult Consult date: 12/09/18 - History of Present Illness NEW TO [facility] PA[facility] (PROSTATE ABSCESS) 53 yo M PMHx HTN, DM2, GERD admitted with rectal pain. He notes these symptoms began approximately 3 weeks prior to admission, and that the pain in his rectum radiates to the perineum. He also complains of associated subjective fevers and chills. He presented to the ER the day before admission and was diagnosed with constipation and hemorrhoids, which he had complained of. After his chart being reviewed again he was called back and instructed to return to the hospital for further evaluation due to fever and tachycardia. at bedside discussed findings and procedure abd soft CTAP with 7x6xm left prostatic abscess( 12-08-18) A/p prostate abscess poorly controlled Diabetes cysto & drainage Past History Past Medical History: diabetes, GERD, hypertension Past Surgical History: No surgical history Social history: denies: smoking, alcohol abuse Family history: diabetes Medications and Allergies Allergies Allergy/AdvReac Type Severity Reaction Status Date / Time No Known Allergies Allergy Verified 12/07/18 18:56 Home Medications Medication Instructions Recorded Confirmed Last Taken Type Docusate Sodium [Colace CAP] 100 mg PO BID #60 capsule 12/08/18 12/09/18 Unknown Rx Polyethylene Glycol 3350 [Miralax 17 gm PO BID 7 Days #14 packet 12/08/18 12/09/18 Unknown Rx 3350] Active Meds: Active Medications Acetaminophen (Tylenol) 650 mg PO Q4H PRN PRN Reason: Pain MILD(1-3)/Fever >100.5/CHATMAN Last Admin: 12/09/18 02:03 Dose: 650 mg Documented by: Dextrose (D50w (25gm) Syringe) 50 ml IV PRN PRN PRN Reason: Hypoglycemia Enoxaparin Sodium (Lovenox) 40 mg SUB-Q QDAY@1000 ANAT Last Admin: 12/09/18 10:00 Dose: Not Given Documented by: Piperacillin Sod/Tazobactam Sod (Zosyn/Ns 4.5gm/100ml) 4.5 gm in 100 mls @ 200 mls/hr IV Q8HR ANAT; Protocol Last Admin: 12/09/18 13:22 Dose: 200 mls/hr Documented by: Sodium Chloride (Nacl 0.45% 1000 Ml) 1,000 mls @ 100 mls/hr IV DIRECT ANAT Last Admin: 12/09/18 14:08 Dose: 100 mls/hr Documented by: Insulin Human Lispro (Humalog) 0 unit SUB-Q ACHS [facility]; Protocol Insulin Human Regular (Humulin R) 12 units SUB-Q [facility] Morphine Sulfate (Morphine) 2 mg IV Q4H PRN PRN Reason: Pain, Moderate (4-6) Last Admin: 12/09/18 00:45 Dose: 2 mg Documented by: Ondansetron HCl (Zofran) 4 mg IV Q8H PRN PRN Reason: Nausea And Vomiting Sodium Chloride (Sodium Chloride Flush Syringe 10 Ml) 10 ml IV BID [facility] Last Admin: 12/09/18 11:07 Dose: 10 ml Documented by: Sodium Chloride (Sodium Chloride Flush Syringe 10 Ml) 10 ml IV PRN PRN PRN Reason: LINE FLUSH Exam - Constitutional Vitals: Temp Pulse Resp BP Pulse Ox 98.8 F 92 H 22 136/91 95 12/09/18 13:34 12/09/18 13:34 12/09/18 13:34 12/09/18 13:34 12/09/18 13:34 Results - Labs CBC & Chem 7: 12/09/18 04:41 12/09/18 04:41 Labs: Abnormal lab results 12/08/18 12/08/18 12/08/18 Range/Units 18:29 18:29 19:53 WBC 12.2 H (4.5-11.0) K/mm3 Lymph % (Auto) 12.0 L (13.4-35.0) % [place] % (Auto) (0.0-7.3) % [place] # (0.0-0.8) K/mm3 Seg Neutrophils % 78.2 H (40.0-70.0) % Seg Neutrophils # 9.5 H (1.8-7.7) K/mm3 POC ABG pO2 (80-105) Sodium 130 L (137-145) mmol/L Chloride 92.4 L (98-107) mmol/L Creatinine 0.6 L (0.8-1.5) mg/dL Glucose 411 H (75-100) mg/dL POC Glucose (70-105) Albumin 3.5 L (3.9-5) g/dL Urine WBC (Auto) > 182.0 H (0.0-6.0) /[facility] 12/09/18 12/09/18 12/09/18 Range/Units 00:36 01:00 04:41 WBC 11.6 H (4.5-11.0) K/mm3 Lymph % (Auto) 12.0 L (13.4-35.0) % [place] % (Auto) 8.1 H (0.0-7.3) % [place] # 0.9 H (0.0-0.8) K/mm3 Seg Neutrophils % 76.4 H (40.0-70.0) % Seg Neutrophils # 8.9 H (1.8-7.7) K/mm3 POC ABG pO2 71 L (80-105) Sodium (137-145) mmol/L Chloride (98-107) mmol/L Creatinine (0.8-1.5) mg/dL Glucose (75-100) mg/dL POC Glucose 152 H (70-105) Albumin (3.9-5) g/dL Urine WBC (Auto) (0.0-6.0) /[facility] 12/09/18 12/09/18 12/09/18 Range/Units 04:41 07:57 13:44 WBC (4.5-11.0) K/mm3 Lymph % (Auto) (13.4-35.0) % [place] % (Auto) (0.0-7.3) % [place] # (0.0-0.8) K/mm3 Seg Neutrophils % (40.0-70.0) % Seg Neutrophils # (1.8-7.7) K/mm3 POC ABG pO2 (80-105) Sodium 135 L (137-145) mmol/L Chloride 97.0 L (98-107) mmol/L Creatinine 0.6 L (0.8-1.5) mg/dL Glucose 303 H (75-100) mg/dL POC Glucose 237 H 229 H (70-105) Albumin (3.9-5) g/dL Urine WBC (Auto) (0.0-6.0) /[facility] 12/09/18 Range/Units 16:48 WBC (4.5-11.0) K/mm3 Lymph % (Auto) (13.4-35.0) % [place] % (Auto) (0.0-7.3) % [place] # (0.0-0.8) K/mm3 Seg Neutrophils % (40.0-70.0) % Seg Neutrophils # (1.8-7.7) K/mm3 POC ABG pO2 (80-105) Sodium (137-145) mmol/L Chloride (98-107) mmol/L Creatinine (0.8-1.5) mg/dL Glucose (75-100) mg/dL POC Glucose 213 H (70-105) Albumin (3.9-5) g/dL Urine WBC (Auto) (0.0-6.0) /HPF
[2018-12-09] MEDS ORDERED: DIPRIVAN 10 MG/ML IV ONE (19:34)
[2018-12-09] MEDS ORDERED: SUBLIMAZE ONE ×2 (19:35→20:26)
[2018-12-09] MEDS ORDERED: DECADRON ONE (20:00)
[2018-12-09] MEDS ORDERED: XYLOCAINE MPF 2% ONE (20:00)
[2018-12-09] MEDS ORDERED: ZOFRAN ONE (20:00)
[2018-12-09] MEDS ORDERED: DILAUDID ONE (20:30)
[2018-12-09] MEDS ORDERED: NACL 0.9% IR ONE (20:48)
--- NOTE | 2018-12-09 20:51 | Post Operative Note ---
Date of procedure: 12/09/18 Pre-op diagnosis: prostate abscess Procedure: cysto, TURP---drainage of abscess Anesthesia: LAURIA Surgeon: ARLETTE MAURICIO Estimated blood loss: minimal Pathology: list (prostate chips, C&S) Condition: stable (prostate chips & urine C & S) Disposition: PACU
[2018-12-10] MEDS: NACL 0.9% IR PRN ×9 (01:56→23:41)
[2018-12-10] MEDS: MORPHINE IV PRN (02:06)
[2018-12-10] MEDS: NACL 0.45% 1000 ML 1,000 ML IV SCH ×2 (04:42→17:45)
[2018-12-10 04:54] LABS: Hematocrit 38.3 % (35.5-45.6); Mean Corpuscular HGB Conc 34 % (32-34); Mean Corpuscular Volume 86 fl (84-94); Platelet Count 300 K/mm3 (140-440); Red Blood Count 4.45 M/mm3 (3.65-5.03); Red Cell Distribution Width 13.5 % (13.2-15.2)
[2018-12-10 05:21] LABS: BUN/Creatinine Ratio 22; Blood Urea Nitrogen 11 mg/dL (9-20); Calcium 8.7 mg/dL (8.4-10.2); Hemolysis Index 0
[2018-12-10] MEDS: ZOSYN/NS 4.5GM/100ML 4.5 GM/100 ML VIAL IV SCH ×3 (06:23→22:40)
[2018-12-10] MEDS: HumuLIN R SUB-Q SCH (07:30)
[2018-12-10] MEDS ORDERED: HumuLIN R SUB-Q ONE (07:39)
--- NOTE | 2018-12-10 07:39 | Progress Note ---
Assessment and Plan Assessment and plan: 53-year-old man with a history of hypertension, diabetes, GERD was seen in the emergency yesterday for rectal pain, diagnosed with constipation. He was called back today for further evaluation due to concern of fever, tachycardia and abdominal pain. He stated that over the last 3 weeks he has been having fever chills and pain in his rectum radiating to the perineum, intermittent every 30 minutes, intensity 5/10 genitourinary thigh exacerbating or relieving factors * s/p cysto, TURP---drainage of abscess 12/09/18 Sepsis-POA Prostate abscess Acute cystitis- Complex secondary to Prostate abscess hypertension Diabetes Mellitus with hyperglycemia Hyponatremia Metabolic Acidosis, likely secondary to Sepsis GERD Plan Continue supportive care Urology and ID input noted Continue on Zosyn while awaiting cultures Increase insulin to High scale for better converage, Check A1c AND Start QHS lantus Cultures with no growth so far. Await Interoperative cultures also IV morphine, DVT prophylaxis Plan discussed with the patient in detail History Interval history: Patient seen and examined, resting, no new complaints, [place] in[place] Hospitalist Physical - Physical exam Narrative exam: General Apperance: uncomfortable appearing HEENT: Normocephalic, atraumatic. Pupils equally round and reactive to light, extraocular movement intact, and no sclericterus or JVD or thyromegaly or nodule. Neck supple, no carotid bruit, mucous membranes moist, no exudate or erythema Heart: S1-S2, regular is rhythm Lungs: Clear to auscultation bilaterally, breathing comfortable Abdomen: Positive bowel sounds, soft, nontender, nondistended, no organomegaly Extremities: No edema cyanosis clubbing :powell in place Skin: no rash, nodule, warm and dry, perineal Area, no erythema, tender Neuro:CN 2 -12 intact, motor/sensory intact, speech is fluent - Constitutional Vitals: Temp Pulse Resp BP Pulse Ox 99.0 F 84 18 112/75 98 12/10/18 05:44 12/10/18 05:44 12/10/18 05:44 12/10/18 05:44 12/10/18 05:44 Results - Labs CBC & Chem 7: 12/10/18 04:37 12/10/18 04:37 Labs: Laboratory Last Values WBC 17.8 K/mm3 (4.5-11.0) H 12/10/18 04:37 RBC 4.45 M/mm3 (3.65-5.03) 12/10/18 04:37 Hgb 13.0 gm/dl (11.8-15.2) 12/10/18 04:37 Hct 38.3 % (35.5-45.6) 12/10/18 04:37 MCV 86 fl (84-94) 12/10/18 04:37 MCH 29 pg (28-32) 12/10/18 04:37 MCHC 34 % (32-34) 12/10/18 04:37 RDW 13.5 % (13.2-15.2) 12/10/18 04:37 Plt Count 300 K/mm3 (140-440) 12/10/18 04:37 Lymph % (Auto) 12.0 % (13.4-35.0) L 12/09/18 04:41 Gem % (Auto) 8.1 % (0.0-7.3) H 12/09/18 04:41 Eos % (Auto) 2.6 % (0.0-4.3) 12/09/18 04:41 Baso % (Auto) 0.9 % (0.0-1.8) 12/09/18 04:41 Lymph # 1.4 K/mm3 (1.2-5.4) 12/09/18 04:41 Gem # 0.9 K/mm3 (0.0-0.8) H 12/09/18 04:41 Eos # 0.3 K/mm3 (0.0-0.4) 12/09/18 04:41 Baso # 0.1 K/mm3 (0.0-0.1) 12/09/18 04:41 Seg Neutrophils % 76.4 % (40.0-70.0) H 12/09/18 04:41 Seg Neutrophils # 8.9 K/mm3 (1.8-7.7) H 12/09/18 04:41 POC ABG pH 7.416 (7.35-7.45) 12/09/18 00:36 POC ABG pCO2 37.6 (35-45) 12/09/18 00:36 POC ABG pO2 71 (80-105) L 12/09/18 00:36 POC ABG HCO3 24.1 (22-26 mml/L) 12/09/18 00:36 POC ABG Total CO2 25 (23-27mmol/L) 12/09/18 00:36 POC ABG O2 Sat 94 12/09/18 00:36 POC ABG Base Excess 0 ((-2) - (+3)mmol/L) 12/09/18 00:36 21 % 12/09/18 00:36 Sodium 133 mmol/L (137-145) L 12/10/18 04:37 Potassium 4.4 mmol/L (3.6-5.0) 12/10/18 04:37 Chloride 96.4 mmol/L (98-107) L 12/10/18 04:37 Carbon Dioxide 21 mmol/L (22-30) L 12/10/18 04:37 20 mmol/L 12/10/18 04:37 BUN 11 mg/dL (9-20) 12/10/18 04:37 0.5 mg/dL (0.8-1.5) L 12/10/18 04:37 Estimated GFR > 60 ml/min 12/10/18 04:37 22 % 12/10/18 04:37 Glucose 295 mg/dL (75-100) H 12/10/18 04:37 POC Glucose 448 (70-105) H 12/09/18 23:08 Lactic Acid 1.20 mmol/L (0.7-2.0) 12/08/18 18:56 Calcium 8.7 mg/dL (8.4-10.2) 12/10/18 04:37 0.30 mg/dL (0.1-1.2) 12/08/18 18:29 AST 13 units/L (5-40) 12/08/18 18:29 ALT 13 units/L (7-56) 12/08/18 18:29 113 units/L (35-129) 12/08/18 18:29 7.8 g/dL (6.3-8.2) 12/08/18 18:29 3.5 g/dL (3.9-5) L 12/08/18 18:29 0.8 % 12/08/18 18:29 20 units/L (13-60) 12/08/18 18:29 Yellow (Yellow) 12/08/18 19:53 Cloudy (Clear) 12/08/18 19:53 7.0 (5.0-7.0) 12/08/18 19:53 Ur Specific [place] 1.028 (1.003-1.030) 12/08/18 19:53 <15 mg/dl mg/dL (Negative) 12/08/18 19:53 >=500 mg/dL (Negative) 12/08/18 19:53 Neg mg/dL (Negative) 12/08/18 19:53 Sm (Negative) 12/08/18 19:53 Pos (Negative) 12/08/18 19:53 Neg (Negative) 12/08/18 19:53 4.0 mg/dL (<2.0) 12/08/18 19:53 Ur Leukocyte Esterase Lg (Negative) 12/08/18 19:53 > 182.0 /HPF (0.0-6.0) H 12/08/18 19:53 9.0 /HPF (0.0-6.0) 12/08/18 19:53 U Epithel Cells (Auto) 1.0 /HPF (0-13.0) 12/08/18 19:53 1+ /HPF (Negative) 12/08/18 19:53 Few /HPF 12/08/18 19:53 1+ /HPF 12/08/18 19:53 Active Medications - Current Medications Current Medications: Generic Name Dose Route Start Last Admin Trade Name Freq PRN Reason Stop Dose Admin Acetaminophen 650 mg 12/08/18 22:16 12/09/18 02:03 Tylenol PO 650 mg Q4H PRN Administration Pain MILD(1-3)/Fever >100.5/CHATMAN Dextrose 50 ml 12/09/18 07:59 D50w (25gm) Syringe IV PRN PRN Hypoglycemia Dextrose 50 ml 12/10/18 07:35 D50w (25gm) Syringe IV PRN PRN Hypoglycemia Enoxaparin Sodium 40 mg 12/09/18 10:00 12/09/18 10:00 Lovenox SUB-Q Not Given QDAY@1000 ANAT Piperacillin Sod/Tazobactam Sod 4.5 gm in 100 mls @ 200 mls/hr 12/08/18 23:00 12/10/18 06:23 Zosyn/Ns 4.5gm/100ml IV 200 mls/hr Q8HR ANAT Administration Protocol Sodium Chloride 1,000 mls @ 100 mls/hr 12/08/18 23:00 12/10/18 04:42 Nacl 0.45% 1000 Ml IV 100 mls/hr DIRECT ANAT Administration Insulin Glargine 12 units 12/10/18 22:00 Lantus SUB-Q QHS ANAT Insulin Human Lispro 0 unit 12/09/18 11:30 12/09/18 23:34 Humalog SUB-Q 8 unit ACHS ANAT Administration Protocol Morphine Sulfate 2 mg 12/08/18 22:16 12/10/18 02:06 Morphine IV 2 mg Q4H PRN Administration Pain, Moderate (4-6) Ondansetron HCl 4 mg 12/08/18 22:16 Zofran IV Q8H PRN Nausea And Vomiting Sodium Chloride 10 ml 12/09/18 10:00 12/09/18 23:35 Sodium Chloride Flush Syringe 10 Ml IV 10 ml BID ANAT Administration Sodium Chloride 10 ml 12/08/18 22:16 12/10/18 02:07 Sodium Chloride Flush Syringe 10 Ml IV 10 ml PRN PRN Administration LINE FLUSH Sodium Chloride 2,000 ml 12/10/18 23:55 12/10/18 07:27 Nacl 0.9% IR 2,000 ml DIRECT PRN Administration IRRIGATION Nutrition/Malnutrition Assess - Dietary Evaluation Nutrition/Malnutrition Findings: Nutrition Notes Start: 12/09/18 09:40 Freq: Status: Active Protocol: Document 12/09/18 09:40 DEEPIKA (Rec: 12/09/18 09:57 [email or web address] [id number]) Co-Sign 12/09/18 09:40 LP Nutrition Notes Need for Assessment generated from: algebra tutor,Education Initial or Follow up Assessment Current Diagnosis Diabetes,Hypertension Other Pertinent Diagnosis GERD Current Diet NPO Labs/Tests Creat 0.6, Glucose 303 Pertinent Medications Zofran Height 6 ft Weight 86.636 kg Usual Body Weight 105 kg [place] Body Weight (kg) 80.90 BMI 25.9 Weight change and time frame 17% in unknown time frame Subjective/Other Information Gave him a handout about diabetes education. Mentioned how he lost some weight due to blood glucose levels about 2 months ago. Has had an appetite and ate well before NPO. Burn Absent Trauma Absent Minimum of two criteria No #1 Nutrition Diagnosis Food and nutrition-related knowledge deficit Etiology Excessive carbohydrate intake As Evidenced by Signs and Symptoms Glucose 303 Is patient on ventilator? No Is Patient Ambulatory and/or Out of Bed Yes REE-([facility]-ambulatory/OOB) [ 2287.168 NUTR.[id number]] Calculation Used for Recommendations [facility] Additional Notes Protein needs: 69- 86g/kg (0.8 -1.0g/kg) Fluid needs: 1ml/kcal Nutrition Intervention Change Diet Order: Consistant carb diet Teaching Recipient Patient Learning Readiness Good Teaching Methods Discussion,Handout Response to Teaching Verbalize understanding Education Handouts Provided Consistant carb handout Barriers to Learning No Barriers RD phone number provided Yes Patient aware of follow up options Yes Goal #1 Decrease blood glucose level Anticipated Discharge Needs: Consistant carb diet Revisit per MD consult or patient Sign Off request:
[2018-12-10] MEDS ORDERED: D50W (25GM) Syringe IV PRN (08:00)
--- NOTE | 2018-12-10 08:15 | Progress Note ---
Assessment and Plan Cultures: 12/08 BCX: NGTD 12/09 UCx: GNR A/P:63 yo M PMHx HTN, DM2, GERD admitted with prostatic abscess 1. Acute sepsis - Improved. leukocytosis continuing. Secondary to prostatic abscess 2. Prostatic abscess - Urine cultures grew GNR. Will follow-up on ID and susceptibility. Ok to continue Zosyn for now . S/p cysto, TURP amd drainage of abscess. Appreciate cultures sent. Likely to change to a fluoroquinolone for prolonged ABx after drainage due to excellent prostatic penetration. 3. HTN 4. DM2 Recs: - continue pip-kit 4.5g q8h pending drainage - follow up urine cultures for ID and susceptibility -follow up blood cultures - follow-up intra-operative aerobic and anaerobic cultures. 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 Please call for [employer] [facility] [employer] M: [phone] O:[phone] Subjective Date of service: 12/10/18 Interval history: Patient seen and examined. Reports no pain or generalized weakness. No fevers. Objective - Exam Narrative Exam: Constitutional: Alert, cooperative. No acute distress Head, Ears, Nose: Normocephalic, atraumatic. External ears, nose normal Eyes: Conjunctivae/corneas clear. No icterus. No ptosis. Neck: Supple, no meningeal signs Oral: dentition fair, no thrush Cardiovascular: S1, S2 normal. Respiratory: Good air entry, clear to auscultation bilaterally GI: Soft, non-tender; bowel sounds normal. No peritoneal signs. Musculoskeletal: No pedal edema, no cyanosis. Skin: No rash or abscess Hem/Lymphatic: No palpable cervical or supraclavicular nodes. No lymphangitis Psych: Mood ok. Affect normal Neurological: Awake, alert, oriented. No gross abnormality - Constitutional Vitals: Vital Signs Temp Pulse Resp BP Pulse Ox 99.0 F 84 18 112/75 98 12/10/18 05:44 12/10/18 05:44 12/10/18 05:44 12/10/18 05:44 12/10/18 05:44 Temperature -Last 24 Hours Temperature 99.0 F Temperature 98.4 F Temperature 99.2 F Temperature 98.7 F Temperature 97.7 F Temperature 98.8 F Temperature 98.7 F - Labs CBC & Chem 7: 12/10/18 04:37 12/10/18 04:37 Labs: Abnormal lab results 12/09/18 12/09/18 12/09/18 Range/Units 13:44 16:48 21:18 WBC (4.5-11.0) K/mm3 Sodium (137-145) mmol/L Chloride (98-107) mmol/L Carbon Dioxide (22-30) mmol/L Creatinine (0.8-1.5) mg/dL Glucose (75-100) mg/dL POC Glucose 229 H 213 H 199 H (70-105) 12/09/18 12/10/18 12/10/18 Range/Units 23:08 04:37 04:37 WBC 17.8 H (4.5-11.0) K/mm3 Sodium 133 L (137-145) mmol/L Chloride 96.4 L (98-107) mmol/L Carbon Dioxide 21 L (22-30) mmol/L Creatinine 0.5 L (0.8-1.5) mg/dL Glucose 295 H (75-100) mg/dL POC Glucose 448 H (70-105) 12/10/18 Range/Units 07:54 WBC (4.5-11.0) K/mm3 Sodium (137-145) mmol/L Chloride (98-107) mmol/L Carbon Dioxide (22-30) mmol/L Creatinine (0.8-1.5) mg/dL Glucose (75-100) mg/dL POC Glucose 240 H (70-105)
[2018-12-10] MEDS ORDERED: NACL 0.9% 1000 ML 1,000 ML IV ONE (08:30)
[2018-12-10] MEDS: LOVENOX SUB-Q SCH (09:16)
[2018-12-10] MEDS: HumaLOG SUB-Q SCH ×4 (09:16→22:15)
[2018-12-10] MEDS: SODIUM CHLORIDE FLUSH SYRINGE 10 ML IV SCH ×2 (09:17→22:30)
--- NOTE | 2018-12-10 12:35 | Progress Note ---
Subjective Date of service: 12/10/18 Interval history: RECTAL PAIN (PROSTATE ABSCESS) 53 yo M PMHx HTN, DM2, GERD admitted with rectal pain. He notes these symptoms began approximately 3 weeks prior to admission, and that the pain in his rectum radiates to the perineum. He also complains of associated subjective fevers and chills. He presented to the ER the day before admission and was diagnosed with constipation and hemorrhoids, which he had complained of. After his chart being reviewed again he was called back and instructed to return to the hospital for further evaluation due to fever and tachycardia. abd soft OSEGUERA---PINK TINGED URINE CTAP with 7x6xm left prostatic abscess( 12-08-18) A/p prostate abscesss/p TURP/drainage (12-09-18--- HANG) poorly controlled Diabetes PLUG OSEGUERA SIDEPORT HOME WITH OSEGUERA WHEN STABLE (BIG BAG & LEG BAG) Objective - Constitutional Vitals: Vital Signs - 12hr 12/10/18 05:44 Temperature 99.0 F Pulse Rate 84 Respiratory 18 Rate Blood Pressure 112/75 O2 Sat by Pulse 98 Oximetry - Labs CBC & Chem 7: 12/10/18 04:37 12/10/18 04:37 Labs: Abnormal lab results 12/09/18 12/09/18 12/09/18 Range/Units 13:44 16:48 21:18 WBC (4.5-11.0) K/mm3 Sodium (137-145) mmol/L Chloride (98-107) mmol/L Carbon Dioxide (22-30) mmol/L Creatinine (0.8-1.5) mg/dL Glucose (75-100) mg/dL POC Glucose 229 H 213 H 199 H (70-105) 12/09/18 12/10/18 12/10/18 Range/Units 23:08 04:37 04:37 WBC 17.8 H (4.5-11.0) K/mm3 Sodium 133 L (137-145) mmol/L Chloride 96.4 L (98-107) mmol/L Carbon Dioxide 21 L (22-30) mmol/L Creatinine 0.5 L (0.8-1.5) mg/dL Glucose 295 H (75-100) mg/dL POC Glucose 448 H (70-105) 12/10/18 12/10/18 Range/Units 07:54 11:32 WBC (4.5-11.0) K/mm3 Sodium (137-145) mmol/L Chloride (98-107) mmol/L Carbon Dioxide (22-30) mmol/L Creatinine (0.8-1.5) mg/dL Glucose (75-100) mg/dL POC Glucose 240 H 263 H (70-105) Medications & Allergies - Medications Allergies/Adverse Reactions: Allergies No Known Allergies Allergy (Verified 12/07/18 18:56) Home Medications: Home Medications Medication Instructions Recorded Confirmed Last Taken Type Docusate Sodium [Colace CAP] 100 mg PO BID #60 capsule 12/08/18 12/09/18 Unknown Rx Polyethylene Glycol 3350 [Miralax 17 gm PO BID 7 Days #14 packet 12/08/18 12/09/18 Unknown Rx 3350] Active Medications: Generic Name Dose Route Start Last Admin Trade Name Freq PRN Reason Stop Dose Admin Acetaminophen 650 mg 12/08/18 22:16 12/09/18 02:03 Tylenol PO 650 mg Q4H PRN Administration Pain MILD(1-3)/Fever >100.5/CHATMAN Dextrose 50 ml 12/10/18 08:00 D50w (25gm) Syringe IV PRN PRN Hypoglycemia Enoxaparin Sodium 40 mg 12/09/18 10:00 12/10/18 09:16 Lovenox SUB-Q 40 mg QDAY@1000 ANAT Administration Piperacillin Sod/Tazobactam Sod 4.5 gm in 100 mls @ 200 mls/hr 12/08/18 23:00 12/10/18 06:23 Zosyn/Ns 4.5gm/100ml IV 200 mls/hr Q8HR ANAT Administration Protocol Sodium Chloride 1,000 mls @ 100 mls/hr 12/08/18 23:00 12/10/18 04:42 Nacl 0.45% 1000 Ml IV 100 mls/hr DIRECT ANAT Administration Insulin Glargine 14 units 12/10/18 22:00 Lantus SUB-Q QHS ANAT Insulin Human Lispro 0 unit 12/09/18 11:30 12/10/18 09:16 Humalog SUB-Q 4 unit ACHS ANAT Administration Protocol Morphine Sulfate 2 mg 12/08/18 22:16 12/10/18 02:06 Morphine IV 2 mg Q4H PRN Administration Pain, Moderate (4-6) Ondansetron HCl 4 mg 12/08/18 22:16 Zofran IV Q8H PRN Nausea And Vomiting Sodium Chloride 10 ml 12/09/18 10:00 12/10/18 09:17 Sodium Chloride Flush Syringe 10 Ml IV 10 ml BID ANAT Administration Sodium Chloride 10 ml 12/08/18 22:16 12/10/18 02:07 Sodium Chloride Flush Syringe 10 Ml IV 10 ml PRN PRN Administration LINE FLUSH Sodium Chloride 2,000 ml 12/10/18 23:55 12/10/18 07:27 Nacl 0.9% IR 2,000 ml DIRECT PRN Administration IRRIGATION
[2018-12-10] MEDS ORDERED: LANTUS SUB-Q SCH ×2 (22:00)
[2018-12-11] MEDS: NACL 0.9% IR PRN ×4 (02:42→08:38)
[2018-12-11] MEDS: MORPHINE IV PRN (03:04)
[2018-12-11 04:25] LABS: Hematocrit 36.3 % (35.5-45.6); Hemoglobin 12.2 gm/dl (11.8-15.2); Mean Corpuscular HGB Conc 34 % (32-34); Mean Corpuscular Volume 87 fl (84-94); Platelet Count 287 K/mm3 (140-440); Red Blood Count 4.16 M/mm3 (3.65-5.03); Red Cell Distribution Width 13.2 % (13.2-15.2)
[2018-12-11 04:41] LABS: BUN/Creatinine Ratio 16; Blood Urea Nitrogen 8 mg/dL (9-20); Calcium 8.3 mg/dL (8.4-10.2); Hemolysis Index 3
[2018-12-11] MEDS: NACL 0.45% 1000 ML 1,000 ML IV SCH ×2 (04:49→08:47)
[2018-12-11] MEDS: ZOSYN/NS 4.5GM/100ML 4.5 GM/100 ML VIAL IV SCH ×2 (05:18→13:22)
--- NOTE | 2018-12-11 07:40 | Progress Note ---
Assessment and Plan Assessment and plan: 53-year-old man with a history of hypertension, diabetes, GERD was seen in the emergency yesterday for rectal pain, diagnosed with constipation. He was called back today for further evaluation due to concern of fever, tachycardia and abdominal pain. He stated that over the last 3 weeks he has been having fever chills and pain in his rectum radiating to the perineum, intermittent every 30 minutes, intensity 5/10 genitourinary thigh exacerbating or relieving factors * s/p cysto, TURP---drainage of abscess 12/09/18 * Cultures growing GNR, pending sensitivity * Patient will be discharged with Humphries and leg bag per Urology * A1C noted to be 11.6, patient advised on need for insulin, counselling provided on better management Sepsis-POA Prostate abscess Acute cystitis- Complex secondary to Prostate abscess hypertension Diabetes Mellitus with hyperglycemia Hyponatremia Metabolic Acidosis, likely secondary to Sepsis GERD Plan Continue supportive care Urology and ID input noted Continue on Zosyn while awaiting cultures Adjust lantus Cultures with no growth so far. Await Interoperative cultures also IV morphine, DVT prophylaxis Plan discussed with the patient in detail Hospitalist Physical - Constitutional Vitals: Temp Pulse Resp BP Pulse Ox 98.3 F 78 18 117/76 97 12/11/18 05:16 12/11/18 05:16 12/11/18 05:16 12/11/18 05:16 12/11/18 05:16 Results - Labs CBC & Chem 7: 12/11/18 03:04 12/11/18 03:04 Labs: Laboratory Last Values WBC 9.2 K/mm3 (4.5-11.0) 12/11/18 03:04 RBC 4.16 M/mm3 (3.65-5.03) 12/11/18 03:04 Hgb 12.2 gm/dl (11.8-15.2) 12/11/18 03:04 Hct 36.3 % (35.5-45.6) 12/11/18 03:04 MCV 87 fl (84-94) 12/11/18 03:04 MCH 29 pg (28-32) 12/11/18 03:04 MCHC 34 % (32-34) 12/11/18 03:04 RDW 13.2 % (13.2-15.2) 12/11/18 03:04 Plt Count 287 K/mm3 (140-440) 12/11/18 03:04 Lymph % (Auto) 12.0 % (13.4-35.0) L 12/09/18 04:41 [place] % (Auto) 8.1 % (0.0-7.3) H 12/09/18 04:41 Eos % (Auto) 2.6 % (0.0-4.3) 12/09/18 04:41 Baso % (Auto) 0.9 % (0.0-1.8) 12/09/18 04:41 Lymph # 1.4 K/mm3 (1.2-5.4) 12/09/18 04:41 [place] # 0.9 K/mm3 (0.0-0.8) H 12/09/18 04:41 Eos # 0.3 K/mm3 (0.0-0.4) 12/09/18 04:41 Baso # 0.1 K/mm3 (0.0-0.1) 12/09/18 04:41 Seg Neutrophils % 76.4 % (40.0-70.0) H 12/09/18 04:41 Seg Neutrophils # 8.9 K/mm3 (1.8-7.7) H 12/09/18 04:41 POC ABG pH 7.416 (7.35-7.45) 12/09/18 00:36 POC ABG pCO2 37.6 (35-45) 12/09/18 00:36 POC ABG pO2 71 (80-105) L 12/09/18 00:36 POC ABG HCO3 24.1 (22-26 mml/L) 12/09/18 00:36 POC ABG Total CO2 25 (23-27mmol/L) 12/09/18 00:36 POC ABG O2 Sat 94 12/09/18 00:36 POC ABG Base Excess 0 ((-2) - (+3)mmol/L) 12/09/18 00:36 21 % 12/09/18 00:36 Sodium 135 mmol/L (137-145) L 12/11/18 03:04 Potassium 3.9 mmol/L (3.6-5.0) 12/11/18 03:04 Chloride 98.2 mmol/L (98-107) 12/11/18 03:04 Carbon Dioxide 24 mmol/L (22-30) 12/11/18 03:04 17 mmol/L 12/11/18 03:04 BUN 8 mg/dL (9-20) L 12/11/18 03:04 0.5 mg/dL (0.8-1.5) L 12/11/18 03:04 Estimated GFR > 60 ml/min 12/11/18 03:04 16 % 12/11/18 03:04 Glucose 210 mg/dL (75-100) H 12/11/18 03:04 POC Glucose 337 (70-105) H 12/10/18 22:16 11.6 % (4-6) H 12/10/18 21:42 Lactic Acid 1.20 mmol/L (0.7-2.0) 12/08/18 18:56 Calcium 8.3 mg/dL (8.4-10.2) L 12/11/18 03:04 0.30 mg/dL (0.1-1.2) 12/08/18 18:29 AST 13 units/L (5-40) 12/08/18 18:29 ALT 13 units/L (7-56) 12/08/18 18:29 113 units/L (35-129) 12/08/18 18:29 7.8 g/dL (6.3-8.2) 12/08/18 18:29 3.5 g/dL (3.9-5) L 12/08/18 18:29 0.8 % 12/08/18 18:29 20 units/L (13-60) 12/08/18 18:29 Yellow (Yellow) 12/08/18 19:53 Cloudy (Clear) 12/08/18 19:53 7.0 (5.0-7.0) 12/08/18 19:53 Ur Specific [place] 1.028 (1.003-1.030) 12/08/18 19:53 <15 mg/dl mg/dL (Negative) 12/08/18 19:53 >=500 mg/dL (Negative) 12/08/18 19:53 Neg mg/dL (Negative) 12/08/18 19:53 Sm (Negative) 12/08/18 19:53 Pos (Negative) 12/08/18 19:53 Neg (Negative) 12/08/18 19:53 4.0 mg/dL (<2.0) 12/08/18 19:53 Ur Leukocyte Esterase Lg (Negative) 12/08/18 19:53 > 182.0 /HPF (0.0-6.0) H 12/08/18 19:53 9.0 /HPF (0.0-6.0) 12/08/18 19:53 U Epithel Cells (Auto) 1.0 /HPF (0-13.0) 12/08/18 19:53 1+ /HPF (Negative) 12/08/18 19:53 Few /HPF 12/08/18 19:53 1+ /HPF 12/08/18 19:53 Active Medications - Current Medications Current Medications: Generic Name Dose Route Start Last Admin Trade Name Freq PRN Reason Stop Dose Admin Acetaminophen 650 mg 12/08/18 22:16 12/09/18 02:03 Tylenol PO 650 mg Q4H PRN Administration Pain MILD(1-3)/Fever >100.5/CHATMAN Dextrose 50 ml 12/10/18 08:00 D50w (25gm) Syringe IV PRN PRN Hypoglycemia Enoxaparin Sodium 40 mg 12/09/18 10:00 12/10/18 09:16 Lovenox SUB-Q 40 mg QDAY@1000 ANAT Administration Piperacillin Sod/Tazobactam Sod 4.5 gm in 100 mls @ 200 mls/hr 12/08/18 23:00 12/11/18 05:18 Zosyn/Ns 4.5gm/100ml IV 200 mls/hr Q8HR ANAT Administration Protocol Sodium Chloride 1,000 mls @ 100 mls/hr 12/08/18 23:00 12/11/18 04:49 Nacl 0.45% 1000 Ml IV 100 mls/hr DIRECT ANAT Administration Insulin Glargine 14 units 12/10/18 22:00 12/10/18 22:29 Lantus SUB-Q 14 units QHS ANAT Administration Insulin Human Lispro 0 unit 12/09/18 11:30 12/10/18 22:15 Humalog SUB-Q 8 unit ACHS ANAT Administration Protocol Morphine Sulfate 2 mg 12/08/18 22:16 12/11/18 03:04 Morphine IV 2 mg Q4H PRN Administration Pain, Moderate (4-6) Ondansetron HCl 4 mg 12/08/18 22:16 Zofran IV Q8H PRN Nausea And Vomiting Sodium Chloride 10 ml 12/09/18 10:00 12/10/18 22:30 Sodium Chloride Flush Syringe 10 Ml IV 10 ml BID ANAT Administration Sodium Chloride 10 ml 12/08/18 22:16 12/10/18 02:07 Sodium Chloride Flush Syringe 10 Ml IV 10 ml PRN PRN Administration LINE FLUSH Sodium Chloride 2,000 ml 12/10/18 23:55 12/11/18 06:52 Nacl 0.9% IR 2,000 ml DIRECT PRN Administration IRRIGATION Nutrition/Malnutrition Assess - Dietary Evaluation Nutrition/Malnutrition Findings: Nutrition Notes Start: 12/09/18 09:40 Freq: Status: Active Protocol: Document 12/09/18 09:40 DEEPIKA (Rec: 12/09/18 09:57 [email or web address] [id number]) Co-Sign 12/09/18 09:40 LP Nutrition Notes Need for Assessment generated from: it technical support specialist,Education Initial or Follow up Assessment Current Diagnosis Diabetes,Hypertension Other Pertinent Diagnosis GERD Current Diet NPO Labs/Tests Creat 0.6, Glucose 303 Pertinent Medications Zofran Height 6 ft Weight 86.636 kg Usual Body Weight 105 kg [place] Body Weight (kg) 80.90 BMI 25.9 Weight change and time frame 17% in unknown time frame Subjective/Other Information Gave him a handout about diabetes education. Mentioned how he lost some weight due to blood glucose levels about 2 months ago. Has had an appetite and ate well before NPO. Burn Absent Trauma Absent Minimum of two criteria No #1 Nutrition Diagnosis Food and nutrition-related knowledge deficit Etiology Excessive carbohydrate intake As Evidenced by Signs and Symptoms Glucose 303 Is patient on ventilator? No Is Patient Ambulatory and/or Out of Bed Yes REE-([facility]-ambulatory/OOB) [ 2287.168 NUTR.MSJOOB] Calculation Used for Recommendations [facility] Additional Notes Protein needs: 69- 86g/kg (0.8 -1.0g/kg) Fluid needs: 1ml/kcal Nutrition Intervention Change Diet Order: Consistant carb diet Teaching Recipient Patient Learning Readiness Good Teaching Methods Discussion,Handout Response to Teaching Verbalize understanding Education Handouts Provided Consistant carb handout Barriers to Learning No Barriers RD phone number provided Yes Patient aware of follow up options Yes Goal #1 Decrease blood glucose level Anticipated Discharge Needs: Consistant carb diet Revisit per MD consult or patient Sign Off request: - Attestation Statement I have reviewed and agreed w/ Malnutrition eval & tx plan: Yes
[2018-12-11] MEDS ORDERED: HumuLIN R SUB-Q ONE (08:00)
[2018-12-11] MEDS: HumaLOG SUB-Q SCH ×2 (08:39→12:57)
[2018-12-11] MEDS: SODIUM CHLORIDE FLUSH SYRINGE 10 ML IV SCH (09:48)
[2018-12-11] MEDS: LOVENOX SUB-Q SCH (09:48)
--- NOTE | 2018-12-11 11:55 | Discharge Summary ---
Providers - Providers Date of Admission: 12/08/18 22:16 Attending physician: MICHAEL PEREIRA MD 12/09/18 01:54 Consult to Physician [CONS] Routine Comment: Consulting Provider: ARLETTE MAURICIO Physician Instructions: Reason For Exam: prostate abscess 12/09/18 08:12 Consult to Physician [CONS] Routine Comment: Consulting Provider: EDIN CALL Physician Instructions: Reason For Exam: SEPSIS Primary care physician: INGREDIENT SCALER Hospitalization Reason for admission: sepsis Condition: Fair Hospital course: 53-year-old man with a history of hypertension, diabetes, GERD was seen in the emergency yesterday for rectal pain, diagnosed with constipation. He was called back today for further evaluation due to concern of fever, tachycardia and abdominal pain. He stated that over the last 3 weeks he has been having fever chills and pain in his rectum radiating to the perineum, intermittent every 30 minutes, intensity 5/10 genitourinary thigh exacerbating or relieving factors * s/p cysto, TURP---drainage of abscess 12/09/18 * Cultures grew Ecoli and senstive to cipro, PER ID patient will be discharged on Ciprofloxacin 500mg PO BID FOR 6 WEEKS * Patient will be discharged with Powell and leg bag per Urology * A1C noted to be 11.6, patient advised on need for insulin, counselling provided on better management * Patient to follow with ID and urology outaptient Sepsis-POA Prostate abscess Acute cystitis- Complex secondary to Prostate abscess hypertension Diabetes Mellitus with hyperglycemia Hyponatremia Metabolic Acidosis, likely secondary to Sepsis GERD Disposition: TO HOME OR SELFCARE Time spent for discharge: 35 mins Core Measure Documentation - Palliative Care Palliative Care/ Comfort Measures: Not Applicable - Core Measures Any of the following diagnoses?: none Exam - Physical Exam Narrative exam: General Apperance: uncomfortable appearing HEENT: Normocephalic, atraumatic. Pupils equally round and reactive to light, extraocular movement intact, and no sclericterus or JVD or thyromegaly or nodule. Neck supple, no carotid bruit, mucous membranes moist, no exudate or erythema Heart: S1-S2, regular is rhythm Lungs: Clear to auscultation bilaterally, breathing comfortable Abdomen: Positive bowel sounds, soft, nontender, nondistended, no organomegaly Extremities: No edema cyanosis clubbing :powell in place Skin: no rash, nodule, warm and dry, perineal Area, no erythema, tender Neuro:CN 2 -12 intact, motor/sensory intact, speech is fluent - Constitutional Vitals: Temp Pulse Resp BP Pulse Ox 98.3 F 78 18 117/76 97 12/11/18 05:16 12/11/18 05:16 12/11/18 05:16 12/11/18 05:16 12/11/18 05:16 Plan Activity: advance as tolerated, fall precautions Diet: diabetic Special Instructions: record daily BP diary, record blood sugar diary Follow up with: PRIMARY CARE, [Primary Care Provider] - 3-5 Days JESSICA ARREDONDO MD [Staff Physician] - 7 Days SHARMAINE CHANEL MD [Staff Physician] - 7 Days Prescriptions: Ciprofloxacin HCl [Ciprofloxacin TAB] 500 mg PO Q12HR #80 tab Saccharomyces Boulardii [Florastor] 250 mg PO DAILY #30 capsule Insulin NPH/Regular [Novolin 70/30] 14 unit SQ BIDDIAB 30 Days ml
[2018-12-11 12:14] VITALS: BP 106/67
--- NOTE | 2018-12-11 15:12 | Operative Report ---
PREOPERATIVE DIAGNOSIS: Prostatic abscess. POSTOPERATIVE DIAGNOSIS: Prostatic abscess. PROCEDURE: Cystoscopy, transurethral resection of prostate and drainage of abscess. SURGEON: Jameson Soliz MD ANESTHESIA: General. ESTIMATED BLOOD LOSS: Minimal. FLUIDS: Crystalloid. COMPLICATIONS: No complications. INDICATIONS: This 53-year-old gentleman presented to the Emergency Room with pelvic pain, glucose of 400. CT of abdomen and pelvis revealed obvious prostatic abscess. On further questioning, the patient has obviously not been compliant with his diabetes. He was admitted to the hospitalist service and subsequently taken to the OR. Risks, benefits, and complications were explained to the patient. DESCRIPTION OF PROCEDURE: The patient was taken to the operative suite, placed in a supine position. After adequate general anesthesia, he was placed in a dorsal lithotomy position, prepped and draped in a sterile fashion. Pancystourethroscopy was performed with a 22-Vietnamese Storz cystoscope, no urethral abnormalities. His prostate did display some moderate trilobar obstruction. His bladder, no tumors or stones were noted. Both ureteral orifices were in normal position. Next, using a 24-Vietnamese resectoscope and loop with the cutting and coag on 160 and 60, transurethral resection of the prostate was performed, taken down the median lobe, right and left lateral lobes. The abscess was noted to be primarily on the left side. Rectal exam was performed, could palpate some fluctuance and mild compression. I was able to expose the abscess transurethrally. Arsenio pus could be appreciated coming from the left lobe of the prostate. At this point, I evacuated out the prostatic chips as well as the infection and a specimen was sent for a culture and sensitivity. Adequate hemostasis was achieved. Upon completion, the ureteral orifices and ____ were intact. A 26-Vietnamese 3-way catheter was placed with aid of a cath guide, 30 mL in the balloon. The patient tolerated the procedure well and was extubated and taken to recovery room. He also had a Dickerson's drip. JOB# [id number] [facility]
[2018-12-11] MEDS ORDERED: LANTUS SUB-Q SCH (22:00)
== END 2018-12-11 14:50 | disposition home or self-care (01) | DRG 854 ==
LOC: ED 16:37 → 3A 22:16
PROVIDERS: ADMIT Internal Medicine; ATTEND Internal Medicine
PROC: 0VB08ZZ Excision of Prostate, Via Natural or Artificial Opening Endoscopic (ICD-10-PCS; principal; 2018-12-09)
PROC: 0V908ZZ Drainage of Prostate, Via Natural or Artificial Opening Endoscopic (ICD-10-PCS; 2018-12-09)
PROC: 4A033R1 Measurement of Arterial Saturation, Peripheral, Percutaneous Approach (ICD-10-PCS; 2018-12-09)
DX: A41.9 Sepsis, unspecified organism (principal); N41.2 Abscess of prostate; N30.00 Acute cystitis without hematuria; E87.1 Hypo-osmolality and hyponatremia; I10 Essential (primary) hypertension; K21.9 Gastro-esophageal reflux disease without esophagitis; K59.00 Constipation, unspecified; Z83.3 Family history of diabetes mellitus; Z82.49 Family history of ischemic heart disease and other diseases of the circulatory system; F17.200 Nicotine dependence, unspecified, uncomplicated; E11.65 Type 2 diabetes mellitus with hyperglycemia; Z79.84 Long term (current) use of oral hypoglycemic drugs
CPT/HCPCS: 36415; 36600; 74177; 80048; 80053; 81001; 82140; 82803; 82962; 83036; 83690; 85025; 85027; 87040; 87075; 87076; 87086; 87116; 87186; 88305; G0378; A4217; J0692; J1100; J1170; J1650; J1815; J2270; J2405; J2543; J2704; J3010; J3370; J7030; J7050; Q9967

== ENCOUNTER 2018-12-12 11:46 | Emergency (ER) | payer OTHER ==
[2018-12-12 11:52] VITALS: BP 141/83
--- NOTE | 2018-12-12 11:56 | Event Note ---
ED Screening Note Date of service: 12/12/18 Time: 11:56 ED Screening Note: 53 y o male presents with cathether leak This initial assessment/diagnostic orders/clinical plan/treatment(s) is/are subject to change based on patients health status, clinical progression and re- assessment by fellow clinical providers in the ED. Further treatment and workup at subsequent clinical providers discretion. Patient/guardian urged not to elope from the ED as their condition may be serious if not clinically assessed and managed. Initial orders include: Main side eval
[2018-12-12] MEDS ORDERED: NACL 0.9% 500 ML IR ONE (13:18)
--- NOTE | 2018-12-12 14:06 | Emergency Department Report ---
ED Male HPI - General Chief complaint: Urogenital-Male Stated complaint: CATHETER OUT/CHECK Time Seen by Provider: 12/12/18 11:56 Source: patient Mode of arrival: Wheelchair Limitations: No Limitations - History of Present Illness Initial comments: Patient is a 53-year-old male who is 3 days status post transurethral resection of prostate and abscess drainage. This was performed by Dr. Soliz. Patient was released yesterday. Patient states that he has a Powell catheter in place and when he strained to have a bowel movement today he feels as though he did something to his Powell catheter. Patient states before going to the bathroom he was having a good amount of urine into the Powell tubing. Since the bowel movement he has some leakage of a large amount of urine from around the tube. The tube did pull forward slightly. Patient complains of no pain at this time. - Related Data Previous Rx's Medication Instructions Recorded Last Taken Type Docusate Sodium [Colace CAP] 100 mg PO BID #60 capsule 12/08/18 Unknown Rx Polyethylene Glycol 3350 [Miralax 17 gm PO BID 7 Days #14 packet 12/08/18 Unknown Rx 3350] Ciprofloxacin HCl [Ciprofloxacin 500 mg PO Q12HR #80 tab 12/11/18 Unknown Rx TAB] Insulin NPH/Regular [Novolin 70/30] 14 unit SQ BIDDIAB 30 Days ml 12/11/18 Unknown Rx Saccharomyces Boulardii [Florastor] 250 mg PO DAILY #30 capsule 12/11/18 Unknown Rx Allergies Allergy/AdvReac Type Severity Reaction Status Date / Time No Known Allergies Allergy Verified 12/07/18 18:56 ED Review of Systems ROS: Stated complaint: CATHETER OUT/CHECK Other details as noted in HPI Comment: All other systems reviewed and negative ED Past Medical Hx - Past Medical History Previous Medical History?: Yes Hx Hypertension: Yes Hx Heart Attack/AMI: No Hx Congestive Heart Failure: No Hx Diabetes: Yes Hx Liver Disease: No Hx Renal Disease: No Hx Sickle Cell Disease: No Hx Seizures: No Hx Asthma: No Hx COPD: No Hx Dementia: No Hx HIV: No - Surgical History Past Surgical History?: Yes Hx Pacemaker: No Hx Internal Defibrillator: No Additional Surgical History: prostate abscess removal. - Social History Smoking Status: Current Every Day Smoker Substance Use Type: None - Medications Home Medications: Home Medications Medication Instructions Recorded Confirmed Last Taken Type Docusate Sodium [Colace CAP] 100 mg PO BID #60 capsule 12/08/18 12/09/18 Unknown Rx Polyethylene Glycol 3350 [Miralax 17 gm PO BID 7 Days #14 packet 12/08/18 12/09/18 Unknown Rx 3350] Ciprofloxacin HCl [Ciprofloxacin 500 mg PO Q12HR #80 tab 12/11/18 Unknown Rx TAB] Insulin NPH/Regular [Novolin 70/30] 14 unit SQ BIDDIAB 30 Days ml 12/11/18 Unknown Rx Saccharomyces Boulardii [Florastor] 250 mg PO DAILY #30 capsule 12/11/18 Unknown Rx ED Physical Exam - General Limitations: No Limitations General appearance: alert, in no apparent distress - Head Head exam: Present: atraumatic, normocephalic - Eye Eye exam: Present: normal appearance, PERRL, EOMI - ENT ENT exam: Present: mucous membranes moist - Neck Neck exam: Present: normal inspection - Respiratory Respiratory exam: Present: normal lung sounds bilaterally. Absent: respiratory distress, wheezes, rales, rhonchi, stridor - Cardiovascular Cardiovascular Exam: Present: regular rate, normal rhythm. Absent: systolic murmur, diastolic murmur, rubs, gallop - GI/Abdominal GI/Abdominal exam: Present: soft, normal bowel sounds. Absent: distended, tenderness, guarding, rebound - Rectal Rectal exam: Present: deferred - exam: Present: normal inspection, other (powell catheter in place, shorts soaked with urine) - Extremities Exam Extremities exam: Present: normal inspection - Back Exam Back exam: Present: normal inspection - Neurological Exam Neurological exam: Present: alert, oriented X3 - Psychiatric Psychiatric exam: Present: normal affect, normal mood - Skin Skin exam: Present: warm, dry, intact, normal color. Absent: rash ED Course Vital Signs 12/12/18 11:50 Temperature 98.7 F Pulse Rate 90 Respiratory 18 Rate Blood Pressure 141/83 O2 Sat by Pulse 99 Oximetry ED Medical Decision Making - Medical Decision Making Powell catheter had the balloon deflated and this further and to secure that it was fully within the bladder. Was 3 inflated with the proper amount of water. Powell catheter was flushed with normal saline and appears to be draining well. Patient will be discharged home. Likely the patient's balloon deflated some causing the leakage around the Powell. Critical care attestation.: If time is entered above; I have spent that time in minutes in the direct care of this critically ill patient, excluding procedure time. ED Disposition Clinical Impression: Powell catheter problem Qualifiers: Encounter type: initial encounter Qualified Code(s): T83.9XXA - Unspecified complication of genitourinary prosthetic device, implant and graft, initial encounter Disposition: DC- TO HOME OR SELFCARE Is pt being admited?: No Does the pt Need Aspirin: No Condition: Stable Referrals: PRIMARY CARE, [Primary Care Provider] - 3-5 Days Time of Disposition: 14:06
[2018-12-12] MEDS ORDERED: NACL 0.9% IR ONE (15:16)
== END 2018-12-12 14:44 | disposition home or self-care (01) ==
LOC: ED 11:46
DX: T83.9XXA Unspecified complication of genitourinary prosthetic device, implant and graft, initial encounter (principal); I10 Essential (primary) hypertension; E11.9 Type 2 diabetes mellitus without complications; F17.200 Nicotine dependence, unspecified, uncomplicated; Z79.4 Long term (current) use of insulin; Z79.899 Other long term (current) drug therapy; Y84.8 Other medical procedures as the cause of abnormal reaction of the patient, or of later complication, without mention of misadventure at the time of the procedure; Y92.89 Other specified places as the place of occurrence of the external cause

== ENCOUNTER 2020-10-31 09:37 | Emergency (ER) | payer OTHER ==
[2020-10-31 10:33] LABS: Basophils # (Auto) 0.1 K/mm3 (0.0-0.1); Basophils % (Auto) 1.2 % (0.0-1.8); Eosinophils # (Auto) 0.7 K/mm3 (0.0-0.4); Eosinophils % (Auto) 7.4 % (0.0-4.3); Hematocrit 51.1 % (35.5-45.6); Hemoglobin 17.8 gm/dl (11.8-15.2); Lymphocytes # (Auto) 1.8 K/mm3 (1.2-5.4); Lymphocytes % (Auto) 17.9 % (13.4-35.0); Mean Corpuscular HGB Conc 35 % (32-34); Mean Corpuscular Volume 90 fl (84-94); Monocytes # (Auto) 0.6 K/mm3 (0.0-0.8); Platelet Count 203 K/mm3 (140-440); Red Blood Count 5.67 M/mm3 (3.65-5.03); Red Cell Distribution Width 13.6 % (13.2-15.2)
[2020-10-31 10:54] LABS: Alanine Aminotransferase 18 units/L (7-56); Albumin 4.1 g/dL (3.9-5); Blood Urea Nitrogen 11 mg/dL (9-20); Calcium 9.8 mg/dL (8.4-10.2); Hemolysis Index 28
[2020-10-31 10:57] LABS: BUN/Creatinine Ratio 18
[2020-10-31 11:59] LABS: Mucus,Urine FEW /HPF
[2020-10-31 12:00] LABS: Bilirubin,Urine NEG (Negative); Blood,Urine SM (Negative); Color,Urine Yellow (Yellow); Protein,Urine <15 mg/dL mg/dL (Negative); Urobilinogen,Urine < 2.0 mg/dL (<2.0)
[2020-10-31] MEDS ORDERED: SODIUM CHLORIDE 0.9% 1000 ML 1,000 ML IV ONE ×2 (15:43→16:52)
[2020-10-31] MEDS ORDERED: INSULIN REGULAR, HUMAN 100 UNITS/1 ML IV ONE ×2 (15:44→16:52)
--- NOTE | 2020-10-31 18:09 | Emergency Department Report ---
ED General Adult HPI - General Chief complaint: Hyperglycemia Stated complaint: ABN LABS/HIGH BLOOD SUGAR Time Seen by Provider: 10/31/20 15:27 Source: patient Mode of arrival: Ambulatory Limitations: No Limitations - History of Present Illness Initial comments: Patient presents to the emergency department the chief complaint of elevated glucose levels. Patient states he is insulin-dependent and takes his insulin as indicated but also drinks a significant amount of sodas. Patient denies chest pain, shortness breath, or abdominal pain. -: unknown Severity scale (0 -10): 0 Consistency: constant Improves with: none Worsens with: none Associated Symptoms: denies other symptoms Treatments Prior to Arrival: none - Related Data Previous Rx's Medication Instructions Recorded Last Taken Type Docusate Sodium [Colace CAP] 100 mg PO BID #60 capsule 12/08/18 Unknown Rx polyethylene glycoL 3350 [Miralax 17 gm PO BID 7 Days #14 packet 12/08/18 Unknown Rx 3350] Ciprofloxacin HCl [Ciprofloxacin 500 mg PO Q12HR #80 tab 12/11/18 Unknown Rx TAB] Insulin NPH/Regular [Novolin 70/30] 14 unit SQ BIDDIAB 30 Days ml 12/11/18 Unknown Rx Saccharomyces Boulardii [Florastor] 250 mg PO DAILY #30 capsule 12/11/18 Unknown Rx Allergies Allergy/AdvReac Type Severity Reaction Status Date / Time No Known Allergies Allergy Verified 10/31/20 09:49 ED Review of Systems ROS: Stated complaint: ABN LABS/HIGH BLOOD SUGAR Other details as noted in HPI Comment: All other systems reviewed and negative Constitutional: denies: chills, fever Eyes: denies: eye pain, eye discharge, vision change ENT: denies: ear pain, throat pain Respiratory: denies: cough, shortness of breath, wheezing Cardiovascular: denies: chest pain, palpitations Endocrine: no symptoms reported Gastrointestinal: denies: abdominal pain, nausea, diarrhea Genitourinary: denies: urgency, dysuria Musculoskeletal: denies: back pain, joint swelling, arthralgia Skin: denies: rash, lesions Neurological: denies: headache, weakness, paresthesias Psychiatric: denies: anxiety, depression Hematological/Lymphatic: denies: easy bleeding, easy bruising ED Past Medical Hx - Past Medical History Hx Hypertension: Yes Hx Heart Attack/AMI: No Hx Congestive Heart Failure: No Hx Diabetes: Yes Hx Liver Disease: No Hx Renal Disease: No Hx Sickle Cell Disease: No Hx Seizures: No Hx Asthma: No Hx COPD: No Hx Dementia: No Hx HIV: No - Surgical History Hx Pacemaker: No Hx Internal Defibrillator: No Additional Surgical History: prostate abscess removal. - Social History Smoking Status: Current Every Day Smoker Substance Use Type: None - Medications Home Medications: Home Medications Medication Instructions Recorded Confirmed Last Taken Type Docusate Sodium [Colace CAP] 100 mg PO BID #60 capsule 12/08/18 12/09/18 Unknown Rx polyethylene glycoL 3350 [Miralax 17 gm PO BID 7 Days #14 packet 12/08/18 12/09/18 Unknown Rx 3350] Ciprofloxacin HCl [Ciprofloxacin 500 mg PO Q12HR #80 tab 12/11/18 Unknown Rx TAB] Insulin NPH/Regular [Novolin 70/30] 14 unit SQ BIDDIAB 30 Days ml 12/11/18 Unknown Rx Saccharomyces Boulardii [Florastor] 250 mg PO DAILY #30 capsule 12/11/18 Unknow n Rx ED Physical Exam - General Limitations: No Limitations General appearance: alert, in no apparent distress - Head Head exam: Present: atraumatic, normocephalic - Eye Eye exam: Present: normal appearance - ENT ENT exam: Present: mucous membranes moist - Neck Neck exam: Present: normal inspection - Respiratory Respiratory exam: Present: normal lung sounds bilaterally. Absent: respiratory distress - Cardiovascular Cardiovascular Exam: Present: regular rate, normal rhythm. Absent: systolic murmur, diastolic murmur, rubs, gallop - GI/Abdominal GI/Abdominal exam: Present: soft, normal bowel sounds. Absent: distended, tenderness - Rectal Rectal exam: Present: deferred - Extremities Exam Extremities exam: Present: normal inspection - Back Exam Back exam: Present: normal inspection - Neurological Exam Neurological exam: Present: alert, oriented X3, CN II-XII intact. Absent: motor sensory deficit - Psychiatric Psychiatric exam: Present: normal affect, normal mood - Skin Skin exam: Present: warm, dry, intact, normal color. Absent: rash ED Course Vital Signs 10/31/20 09:53 Temperature 99.2 F Pulse Rate 98 H Respiratory 20 Rate Blood Pressure 111/83 O2 Sat by Pulse 98 Oximetry ED Medical Decision Making - Lab Data Result diagrams: 10/31/20 10:07 10/31/20 10:07 Lab Results 10/31/20 10/31/20 10/31/20 Range/Units 09:58 10:07 10:07 WBC 9.8 (4.5-11.0) K/mm3 RBC 5.67 H (3.65-5.03) M/mm3 Hgb 17.8 H (11.8-15.2) gm/dl Hct 51.1 H (35.5-45.6) % MCV 90 (84-94) fl MCH 31 (28-32) pg MCHC 35 H (32-34) % RDW 13.6 (13.2-15.2) % Plt Count 203 (140-440) K/mm3 Lymph % (Auto) 17.9 (13.4-35.0) % Travis % (Auto) 6.0 (0.0-7.3) % Eos % (Auto) 7.4 H (0.0-4.3) % Baso % (Auto) 1.2 (0.0-1.8) % Lymph # (Auto) 1.8 (1.2-5.4) K/mm3 Travis # (Auto) 0.6 (0.0-0.8) K/mm3 Eos # (Auto) 0.7 H (0.0-0.4) K/mm3 Baso # (Auto) 0.1 (0.0-0.1) K/mm3 Seg Neutrophils % 67.5 (40.0-70.0) % Seg Neutrophils # 6.6 (1.8-7.7) K/mm3 VBG pH (7.320-7.420) Sodium 128 L (137-145) mmol/L Potassium 4.3 (3.6-5.0) mmol/L Chloride 89.6 L (98-107) mmol/L Carbon Dioxide 25 (22-30) mmol/L Anion Gap 18 mmol/L BUN 11 (9-20) mg/dL Creatinine 0.6 L (0.8-1.3) mg/dL Estimated GFR > 60 ml/min BUN/Creatinine Ratio 18 % Glucose 455 H (75-100) mg/dL POC Glucose 463 H (70-105) mg/dL Calcium 9.8 (8.4-10.2) mg/dL Phosphorus 3.20 (2.5-4.5) mg/dL Total Bilirubin 0.60 (0.1-1.2) mg/dL AST 19 (5-40) units/L ALT 18 (7-56) units/L Alkaline Phosphatase 147 H (35-129) units/L Total Protein 7.0 (6.3-8.2) g/dL Albumin 4.1 (3.9-5) g/dL Albumin/Globulin Ratio 1.4 % Urine Color (Yellow) Urine Turbidity (Clear) Urine pH (5.0-7.0) Ur Specific [place] (1.003-1.030) Urine Protein (Negative) mg/dL Urine Glucose (UA) (Negative) mg/dL Urine Ketones (Negative) mg/dL Urine Blood (Negative) Urine Nitrite (Negative) Ur Reducing Substances Urine Bilirubin (Negative) Urine Ictotest Urine Urobilinogen (<2.0) mg/dL Ur Leukocyte Esterase (Negative) Urine WBC (Auto) (0.0-6.0) /HPF Urine RBC (Auto) (0.0-6.0) /HPF U Epithel Cells (Auto) (0-13.0) /HPF Urine Mucus /HPF 10/31/20 10/31/20 10/31/20 Range/Units 10:07 15:53 16:50 WBC (4.5-11.0) K/mm3 RBC (3.65-5.03) M/mm3 Hgb (11.8-15.2) gm/dl Hct (35.5-45.6) % MCV (84-94) fl MCH (28-32) pg MCHC (32-34) % RDW (13.2-15.2) % Plt Count (140-440) K/mm3 Lymph % (Auto) (13.4-35.0) % Travis % (Auto) (0.0-7.3) % Eos % (Auto) (0.0-4.3) % Baso % (Auto) (0.0-1.8) % Lymph # (Auto) (1.2-5.4) K/mm3 Travis # (Auto) (0.0-0.8) K/mm3 Eos # (Auto) (0.0-0.4) K/mm3 Baso # (Auto) (0.0-0.1) K/mm3 Seg Neutrophils % (40.0-70.0) % Seg Neutrophils # (1.8-7.7) K/mm3 VBG pH 7.382 (7.320-7.420) Sodium (137-145) mmol/L Potassium (3.6-5.0) mmol/L Chloride (98-107) mmol/L Carbon Dioxide (22-30) mmol/L Anion Gap mmol/L BUN (9-20) mg/dL Creatinine (0.8-1.3) mg/dL Estimated GFR ml/min BUN/Creatinine Ratio % Glucose (75-100) mg/dL POC Glucose > 600 H 488 H (70-105) mg/dL Calcium (8.4-10.2) mg/dL Phosphorus (2.5-4.5) mg/dL Total Bilirubin (0.1-1.2) mg/dL AST (5-40) units/L ALT (7-56) units/L Alkaline Phosphatase (35-129) units/L Total Protein (6.3-8.2) g/dL Albumin (3.9-5) g/dL Albumin/Globulin Ratio % Urine Color (Yellow) Urine Turbidity (Clear) Urine pH (5.0-7.0) Ur Specific [place] (1.003-1.030) Urine Protein (Negative) mg/dL Urine Glucose (UA) (Negative) mg/dL Urine Ketones (Negative) mg/dL Urine Blood (Negative) Urine Nitrite (Negative) Ur Reducing Substances Urine Bilirubin (Negative) Urine Ictotest Urine Urobilinogen (<2.0) mg/dL Ur Leukocyte Esterase (Negative) Urine WBC (Auto) (0.0-6.0) /HPF Urine RBC (Auto) (0.0-6.0) /HPF U Epithel Cells (Auto) (0-13.0) /HPF Urine Mucus /HPF 10/31/20 10/31/20 Range/Units 17:59 Unknown WBC (4.5-11.0) K/mm3 RBC (3.65-5.03) M/mm3 Hgb (11.8-15.2) gm/dl Hct (35.5-45.6) % MCV (84-94) fl MCH (28-32) pg MCHC (32-34) % RDW (13.2-15.2) % Plt Count (140-440) K/mm3 Lymph % (Auto) (13.4-35.0) % Travis % (Auto) (0.0-7.3) % Eos % (Auto) (0.0-4.3) % Baso % (Auto) (0.0-1.8) % Lymph # (Auto) (1.2-5.4) K/mm3 Travis # (Auto) (0.0-0.8) K/mm3 Eos # (Auto) (0.0-0.4) K/mm3 Baso # (Auto) (0.0-0.1) K/mm3 Seg Neutrophils % (40.0-70.0) % Seg Neutrophils # (1.8-7.7) K/mm3 VBG pH (7.320-7.420) Sodium (137-145) mmol/L Potassium (3.6-5.0) mmol/L Chloride (98-107) mmol/L Carbon Dioxide (22-30) mmol/L Anion Gap mmol/L BUN (9-20) mg/dL Creatinine (0.8-1.3) mg/dL Estimated GFR ml/min BUN/Creatinine Ratio % Glucose (75-100) mg/dL POC Glucose 332 H (70-105) mg/dL Calcium (8.4-10.2) mg/dL Phosphorus (2.5-4.5) mg/dL Total Bilirubin (0.1-1.2) mg/dL AST (5-40) units/L ALT (7-56) units/L Alkaline Phosphatase (35-129) units/L Total Protein (6.3-8.2) g/dL Albumin (3.9-5) g/dL Albumin/Globulin Ratio % Urine Color Yellow (Yellow) Urine Turbidity Clear (Clear) Urine pH 6.0 (5.0-7.0) Ur Specific [place] 1.032 H (1.003-1.030) Urine Protein <15 mg/dl (Negative) mg/dL Urine Glucose (UA) >=500 (Negative) mg/dL Urine Ketones 20 (Negative) mg/dL Urine Blood Sm (Negative) Urine Nitrite Neg (Negative) Ur Reducing Substances Not Reportable Urine Bilirubin Neg (Negative) Urine Ictotest Not Reportable Urine Urobilinogen < 2.0 (<2.0) mg/dL Ur Leukocyte Esterase Neg (Negative) Urine WBC (Auto) 1.0 (0.0-6.0) /HPF Urine RBC (Auto) 1.0 (0.0-6.0) /HPF U Epithel Cells (Auto) 1.0 (0-13.0) /HPF Urine Mucus Few /HPF - Medical Decision Making Patient received IV fluids and IV insulin Initial glucose was greater than 600 prior to the above-mentioned treatments Glucose decreased to 332 after above mentioned treatment Critical Care Time: Yes Critical care time in (mins) excluding proc time.: 35 Critical care attestation.: If time is entered above; I have spent that time in minutes in the direct care of this critically ill patient, excluding procedure time. ED Disposition Clinical Impression: Hyperglycemia Disposition: DC-01 TO HOME OR SELFCARE Is pt being admited?: No Does the pt Need Aspirin: No Condition: Stable Instructions: Hyperglycemia Additional Instructions: Return if worse Referrals: MERLE LEROY MD [Staff Physician] - 3-5 Days [facility] [Provider Group] - 3-5 Days [facility] [Provider Group] - 3-5 Days [facility] [Outside] - 3-5 Days Time of Disposition: 18:07
[2020-10-31 18:43] VITALS: BP 105/72
== END 2020-10-31 18:35 | disposition home or self-care (01) ==
LOC: ED 09:37
DX: E11.65 Type 2 diabetes mellitus with hyperglycemia (principal); I10 Essential (primary) hypertension
CPT/HCPCS: 36415; 80053; 81001; 82805; 82962; 84100; 85025; 96361; 96374; 96376; 99283; J7030; J1815